=== PATIENT | female | born 1940 | race Caucasian/White ===

== ENCOUNTER → 2017-12-06 10:58 | Outpatient (CLI) | payer MEDICARE, OTHER, SELFPAY ==
[2017-12-06 12:20] LABS: Absolute Lymphocyte Count 2.23 X10^3/ul (0.83-4.51); Absolute Neutrophil Count 3.1 X10^3/uL (2.0-7.7); Basophil# 0.02 X10^3/uL; Basophil% 0.3 % (0-1); Eosinophil# 0.15 X10^3/uL; Eosinophils% 2.5 % (0-5); Hematocrit 42.5 % (37-47); Hemoglobin 13.8 g/dl (12.0-15.0); Lymphocyte # 2.23 X10^3/ul (4.0); Lymphocyte % 37.7 % (19-41); Mean Corp Hgb Conc 32.5 g/gl (32-36); Mean Corpuscular Hgb 30.9 pg (27.0-32.0); Mean Corpuscular Volume 95.3 fL (81-99); Mean Platelet Vol. 10.7 fl (6.2-12.0); Monocyte# 0.43 X10^3/uL; Monocyte% 7.3 % (0-10); Neutrophil # 3.07 X10^3/uL (2.7-7.7); Platelet Count 276 K/mm3 (150-450); RBC Distribution Width CV 13.7 % (11.6-14.6); RBC Distribution Width SD 46.1 fl (35.1-43.9); Red Blood Count 4.46 M/mm3 (4.2-5.4); White Blood Count 5.9 K/mm3 (4.4-11.0)
[2017-12-06 12:29] LABS: POSITIVE COUNT NO; POSITIVE DIFFERENTIAL NO; POSITIVE MORPHOLOGY NO
[2017-12-06 12:36] LABS: ALB/GLOB Ratio 0.9 RATIO (0.9-2.4); AST(SGOT) 20 U/L (15-37); Alanine Aminotransfer ALT/SGPT 25 U/L (13-56); Albumin, Serum 3.7 g/dL (3.2-5.0); Alkaline Phosphatase 54 U/L (45-117); Anion Gap 8 (5-15); BUN 16 mg/dL (7-18); BUN/Creat Ratio 19.4 RATIO (10-20); Calcium,Total 9.1 mg/dL (8.5-10.1); Chloride 106 mmol/L (98-107); Cholesterol 213 mg/dL (200); Creatinine, Serum 0.82 mg/dL (0.55-1.02); EST Glomerular Filtration Rate 71 mL/min (>60); Est Glom Filt Rate - Afr Amer 86 mL/min (>60); Globulin 4.1 g/dL (2.2-4.2); Glucose 98 mg/dL (74-106); High Density Lipoprotein 41 mg/dL; Magnesium 2.3 mg/dL (1.6-2.6); Potassium 4.4 mmol/L (3.5-5.1); Protein, Total 7.8 g/dL (6.4-8.2); Sodium Level 143 mmol/L (136-145); Thyroid Stim Hormone (TSH) 1.88 uIU/mL (0.358-3.74); Triglycerides 285 mg/dL; Very Low Density Lipoprotein 57 mg/dL (5-40)
[2017-12-07 10:12] LABS: PTHIN 37.3 pg/mL (18.4-80.1)
[2017-12-07 10:21] LABS: Vitamin D,25 Hydroxy 33.1 ng/mL (29.95-100.01)
== END ==
PROVIDERS: Family Provider Family Medicine; PCP Family Medicine; Visit Provider Family Medicine
DX: K21.0 Gastro-esophageal reflux disease with esophagitis (principal); E55.9 Vitamin D deficiency, unspecified; Z13.220 Encounter for screening for lipoid disorders
CPT/HCPCS: 36415; 80053; 80061; 82306; 83735; 83970; 84443; 85025

== ENCOUNTER → 2018-07-02 11:23 | Outpatient (CLI) | payer MEDICARE, OTHER, SELFPAY ==
[2018-07-02 13:51] LABS: Absolute Lymphocyte Count 2.41 X10^3/ul (0.83-4.51); Absolute Neutrophil Count 2.7 X10^3/uL (2.0-7.7); Basophil# 0.03 X10^3/uL; Basophil% 0.5 % (0-1); Eosinophils% 1.8 % (0-5); Hematocrit 42.7 % (37-47); Hemoglobin 14.3 g/dl (12.0-15.0); Lymphocyte # 2.41 X10^3/ul (4.0); Lymphocyte % 42.8 % (19-41); Mean Corp Hgb Conc 33.5 g/gl (32-36); Mean Corpuscular Volume 95.5 fL (81-99); Monocyte% 7.1 % (0-10); Neutrophil # 2.69 X10^3/uL (2.7-7.7); Neutrophil % 47.8 % (47-70); Platelet Count 228 K/mm3 (150-450); RBC Distribution Width CV 13.8 % (11.6-14.6); RBC Distribution Width SD 46.7 fl (35.1-43.9); Red Blood Count 4.47 M/mm3 (4.2-5.4); White Blood Count 5.6 K/mm3 (4.4-11.0)
[2018-07-02 13:58] LABS: POSITIVE COUNT NO; POSITIVE DIFFERENTIAL NO; POSITIVE MORPHOLOGY NO
[2018-07-02 14:08] LABS: ALB/GLOB Ratio 1.1 RATIO (0.9-2.4); AST(SGOT) 24 U/L (15-37); Alanine Aminotransfer ALT/SGPT 32 U/L (13-56); Albumin, Serum 3.9 g/dL (3.2-5.0); Alkaline Phosphatase 51 U/L (45-117); Anion Gap 10 (5-15); BUN 23 mg/dL (7-18); BUN/Creat Ratio 28.8 RATIO (10-20); Calcium,Total 9.2 mg/dL (8.5-10.1); Chloride 106 mmol/L (98-107); Cholesterol 197 mg/dL (200); EST Glomerular Filtration Rate 74 mL/min (>60); Est Glom Filt Rate - Afr Amer 89 mL/min (>60); Globulin 3.7 g/dL (2.2-4.2); Glucose 91 mg/dL (74-106); High Density Lipoprotein 43 mg/dL; Magnesium 2.3 mg/dL (1.6-2.6); Potassium 4.2 mmol/L (3.5-5.1); Protein, Total 7.6 g/dL (6.4-8.2); Sodium Level 144 mmol/L (136-145); Thyroid Stim Hormone (TSH) 1.31 uIU/mL (0.358-3.74); Triglycerides 150 mg/dL; Very Low Density Lipoprotein 30 mg/dL (5-40)
== END ==
PROVIDERS: Family Provider Family Medicine; PCP Family Medicine; Referring Provider Family Medicine; Visit Provider Family Medicine
DX: R00.2 Palpitations (principal); R06.09 Other forms of dyspnea
CPT/HCPCS: 36415; 80053; 80061; 83735; 84443; 85025

== ENCOUNTER 2018-07-15 10:00 | Outpatient (RCR) | payer MEDICARE, OTHER, SELFPAY ==
--- NOTE | 2018-07-17 08:42 | HP.OTEVAL ---
Patient's Visit Information OMAR HILL is a 77 year old F, referred to Occupational Therapy by Cresencio Mckeon MD, with a diagnosis of OA bilateral hands with deformities. Date of Evaluation: 07/15/18 Occupational Therapist: Komal Rosen, MICHAEL/Vinay, CHT - Subjective Subjective: pt working 20 hrs every other week- pt states her hands are painful and digits are ulnar dev. pt states she has no strength for opening containers or use of her hands for long periods of time. pt would like to know what brace she can wear at night as she does not want to wear braces during the day. 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 Pt will demo understanding of adaptive Equipment use to decrease stress on joints to allow pt to perform BADSL and IADLS at TROY level. Goal:: pt will demo understanding of orthosis use at night - wear/care and precautions. pt to return with orthosis if she needs any adj. made to increase comfort. - Rehabilitation General Assessment: pt demo with OA changes at all joints of bilateral hands. pt demo a redunction in functional use of her hands for adls and IADLS. Pt would benefit from skilled OT services 1x week for 3 weeks to ed. pt on ad. eq and joint protection hudson. to increase pts ind with ADLs . Rehabilitation Potential: Good - Anticipated Interventions Anticipated Interventions: A/AAROM/PROM, Strengthening, Triggerpoint Release, Modalities, Orthoses, Joint Protection/Energy Conservation, Ergonomic Education, Fine Motor Coord/Pj - Visit Plan Frequency: 1x/Week Duration: 3 Weeks TEXT: Thank you for the opportunity to evaluate your patient. For Medicare and Medicare HMO plans, please review the plan of care and approve it. It will need to be FAXED BACK to us at [phone] for Medicare purposes. Please let me know if there are questions or concerns regarding this plan of care. Physician Signature: Date:
--- NOTE | 2018-08-28 14:44 | HP.OT.NRP ---
HP - Discharge Summary - Patient Information OMAR HILL was seen in my office for initial evaluation on 07/15/18. The following Plan of Care was established for this patient: Initial Frequency: 1x/Week Initial Duration: 3 Weeks - Anticipated Interventions Anticipated Interventions: A/AAROM/PROM, Strengthening, Triggerpoint Release, Modalities, Orthoses, Joint Protection/Energy Conservation, Ergonomic Education, Fine Motor Coord/Pj This patient was last seen in our office 07/15/18. Pertinent comments regarding their Occupational therapy will appear below: pt seen for OT eval only no further apts have been scheduled. pt D/C at this time due to time-lapse in services. At this point I will be discontinuing this patient from occupational therapy. I would be happy to see this patient again in the future if found appropriate by the physician. Thank you! Komal Rosen, OTR/L, CHT
== END 2018-07-15 19:00 | disposition home or self-care (01) ==
LOC: OT 10:00
PROVIDERS: Family Provider Family Medicine; PCP Family Medicine; Referring Provider Family Medicine; Visit Provider Family Medicine
DX: M19.049 Primary osteoarthritis, unspecified hand (principal)
CPT/HCPCS: 97166; 97760

== ENCOUNTER → 2018-07-16 08:53 | Outpatient (CLI) | payer MEDICARE, OTHER, SELFPAY ==
[2015-01-17 02:04] VITALS: BMI 68.8
--- NOTE | 2018-07-16 08:56 | ECHOD_ITS ---
Reason For Study: KINNEY Procedure This was a 2D Doppler, Color Flow transthoracic echocardiogram. Exam performed in department. Left Ventricle Normal LV size. Left ventricular systolic function is normal. The estimated ejection fraction is 60 %. Stage 1 diastolic dysfunction. No regional wall motion abnormalities noted. Right Ventricle Normal RV size. Normal systolic function. Atria Normal left atrium. Normal right atrium. Mitral Valve Normal mitral valve. Mild (1+) eccentric mitral valve insufficiency. Tricuspid Valve Normal tricuspid valve. Mild (1+) tricuspid valve insufficiency. Pulmonary artery systolic pressure is 28 mmHg. Aortic Valve Normal aortic valve. Pulmonic Valve Normal pulmonic valve. Great Vessels Normal aortic root. The pulmonary artery is normal size. Normal inferior vena cava. Pericardium/Pleural No pericardial effusion. MMode/2D Measurements & Calculations LVIDd: 3.7 cm IVSd: 1.0 cm Ao root diam: 3.1 cm LVIDs: 2.2 cm LVPWd: 0.97 cm LA dimension: 3.5 cm RVDd: 3.8 cm FS: 40.6 % LAV(MOD-bp): 44.7 ml LA A4 area: 15.4 cm2 RA A4 area: 13.7 cm2 LAV(MOD-bp) Indexed: 26.7 ml/m2 LAV(MOD-sp2): 43.0 ml LAV(MOD-sp4): 41.2 ml Time Measurements MV dec time: 0.18 sec Doppler Measurements & Calculations MV E max rashaun: 83.0 cm/sec Lat Peak E' Rashaun: 8.5 cm/sec Med Peak E' Rashaun: 6.5 cm/sec MV A max rashaun: 98.1 cm/sec E/E' lat: 9.7 E/E' med: 12.7 MV E/A: 0.85 MV V2 max: 102.6 cm/sec MV P1/2t max rashaun: 101.9 cm/sec Ao V2 max: 120.0 cm/sec MV max P.2 mmHg MV P1/2t: 68.1 msec Ao max P.8 mmHg MV V2 mean: 50.5 cm/sec MV dec slope: 437.9 cm/sec2 Ao V2 mean: 79.7 cm/sec MV mean P.2 mmHg MVA(P1/2t): 3.2 cm2 Ao mean P.9 mmHg MV V2 VTI: 31.9 cm Ao V2 VTI: 29.4 cm LV V1 max: 87.9 cm/sec MR max rashaun: 545.7 cm/sec PA V2 max: 71.0 cm/sec LV V1 max P.1 mmHg MR max P.1 mmHg LV V1 mean P.4 mmHg MR mean rashaun: 437.3 cm/sec LV V1 mean: 55.1 cm/sec MR mean P.6 mmHg LV V1 VTI: 20.7 cm MR VTI: 221.7 cm TR max rashaun: 247.9 cm/sec TR max P.6 mmHg Interpretation Summary Normal LV size. Left ventricular systolic function is normal. The estimated ejection fraction is 60 %. Stage 1 diastolic dysfunction. Mild (1+) tricuspid valve insufficiency. Ordering Physician: Cresencio Mckeon Referring Physician: Cresencio Mckeon Performed By: Angel Luis Murphy RCS
== END ==
PROVIDERS: Family Provider Family Medicine; PCP Family Medicine; Referring Provider Family Medicine; Visit Provider Family Medicine
DX: R06.09 Other forms of dyspnea (principal)
CPT/HCPCS: 93306

== ENCOUNTER → 2018-11-08 11:25 | Outpatient (CLI) | payer MEDICARE, OTHER, SELFPAY ==
--- NOTE | 2018-11-08 11:32 | VDLE_ITS ---
Reason For Study: Rt calf pain RIGHT GSV is normal. CFV is compressible, spontaneous, phasic, competent and demonstrates normal augmentation. FV is compressible, spontaneous, phasic, competent and demonstrates normal augmentation. POP V is compressible, spontaneous, phasic, competent and demonstrates normal augmentation. T/P Trunk is compressible. PTV is compressible. RT PerV is compressible. Procedure Exam performed in department. A preliminary report was called and/or faxed to Edwin. Interpretation Summary Deep veins of the right lower extremity are patent and compressible segmentally. There is no evidence of right lower extremity deep vein thrombosis. Valvular competence appears intact within the proximal deep venous system on the right . The right greater saphenous vein appears patent and compressible segmentally. Ordering Physician: Alex Pineda Referring Physician: Cresencio Mckeon MD Performed By: Katlyn Duarte RVT
== END ==
PROVIDERS: Family Provider Family Medicine; PCP Family Medicine; Referring Provider Family Medicine; Visit Provider Family Medicine
DX: M79.661 Pain in right lower leg (principal)
CPT/HCPCS: 93971

== ENCOUNTER 2019-08-09 17:26 | Inpatient (IN) | payer MEDICARE, OTHER, SELFPAY ==
[2019-08-09] VITALS (10 sets, daily range): BP systolic 110–133; BP diastolic 59–72; PULSE 73–80; RESP 16–20; TEMP 36.6–37.3; O2SAT 95–100; BMI 29.4; BMI 29.1
[2019-08-09 17:47] LABS: Absolute Lymphocyte Count 1.96 X10^3/uL (0.83-4.51); Absolute Neutrophil Count 3.1 X10^3/uL (2.0-7.7); Hematocrit 41.4 % (37-47); Hemoglobin 13.8 g/dL (12.0-15.0); Lymphocyte # 1.96 X10^3/ul (4.0); Lymphocyte % 35.9 % (19-41); Mean Corp Hgb Conc 33.3 g/dL (32-36); Mean Corpuscular Hgb 30.1 pg (27.0-32.0); Mean Corpuscular Volume 90.2 fL (81-99); Mean Platelet Vol. 9.3 fl (6.2-12.0); Monocyte# 0.41 X10^3/uL; Monocyte% 7.5 % (0-10); NRBC Flagged by Analyzer 0 % (0-5); Neutrophil # 3.06 X10^3/uL (2.7-7.7); Neutrophil % 56.1 % (47-70); Platelet Count 254 K/mm3 (150-450); RBC Distribution Width CV 14.2 % (11.6-14.6); RBC Distribution Width SD 46.5 fl (35.1-43.9); Red Blood Count 4.59 M/mm3 (4.2-5.4); White Blood Count 5.5 K/mm3 (4.4-11.0)
--- NOTE | 2019-08-09 17:54 | RAD_ITS ---
STUDY: X-RAY CHEST REASON FOR EXAM: Female, 78 years old. Shortness of breath. TECHNIQUE: Frontal view of the chest COMPARISON: 08/14/2013 FINDINGS: There are patchy airspace opacities noted in the midlung fuentes bilaterally. There are no pleural effusions. There is no pneumothorax. The heart is normal in size. The visualized osseous structures are within normal limits. RAD/Chest 1 View (Portable) IMPRESSION: Patchy airspace opacities in the midlung fuentes bilaterally. This is likely infectious in etiology. Electronically Signed: Robi Sam, at 18:12 EDT Tel , Service support ,
[2019-08-09 17:58] LABS: International Normalized Ratio 1.1; Partial Thromboplast Time 29.2 Seconds (24.1-36.2); Prothrombin Time (Protime)PT. 13.5 SECONDS (11.7-14.9)
[2019-08-09 18:04] LABS: ALB/GLOB Ratio 0.7 RATIO (0.9-2.4); AST(SGOT) 97 U/L (15-37); Alanine Aminotransfer ALT/SGPT 77 U/L (13-56); Albumin, Serum 3.1 g/dL (3.2-5.0); Alkaline Phosphatase 56 U/L (45-117); Anion Gap 8 (5-15); BUN 15 mg/dL (7-18); BUN/Creat Ratio 18.8 RATIO (10-20); Calcium,Total 8.4 mg/dL (8.5-10.1); Chloride 100 mmol/L (98-107); EST Glomerular Filtration Rate 74 mL/min (>60); Est Glom Filt Rate - Afr Amer 89 mL/min (>60); Estimated Creatinine Clearance 41.63 ml/min; Globulin 4.6 g/dL (2.2-4.2); Glucose 106 mg/dL (74-106); Potassium 3.6 mmol/L (3.5-5.1); Protein, Total 7.7 g/dL (6.4-8.2); Sodium Level 135 mmol/L (136-145)
[2019-08-09 18:07] LABS: Lactic Acid 1.5 mmol/L (0.4-1.9)
--- NOTE | 2019-08-09 19:50 | ED.DCSUM_ITS ---
- ER Visit Summary Date of Service: 08/09/19 Chief Complaint: Cough, SOB History of Present Illness: The patient is a [address] Cresencio Mckeon. She is a nurse at [employer]. She is confused and a poor informant. She tells me that she has been quarantined for 7 to 8 weeks. She checked her pulse ox at home today and it was 85% on room air. Patient was discussed with Dr. Alpesh Perdue. He reports that she was diagnosed in the office 1 week ago with COVID-19 and has been quarantined. He suspects th is is actually day 10 of her illness. He reports that her daughter called today and stated that she is very weak and her pulse ox is low on room air. Physical Examination: Vitals: 98.0, 121/68, 78, 16, 96% on 3 there is nasal cannula. She was 85% on room air which is hypoxic. General: Well-nourished and well-developed. Head: Normocephalic atraumatic. Neck: Supple, no lymphadenopathy. No JVD. Nontender. Cardiovascular: Regular rate and rhythm. No murmurs. Respiratory: Mild respiratory distress with rhonchi bilaterally. Abdominal: Soft, nontender, nondistended, normal bowel sounds. No guarding, rebound, or peritoneal signs. Back: Nontender. Extremities: Nontender, no edema. Skin: Normal color, no rash. Neurologic: Alert and oriented ?3. Cranial nerves II through XII are intact. Normal strength and sensation. Psych: Normal affect. Test Results: CBC is normal. Chem-7 shows a sodium 135 and calcium of 8.4. LFTs show an ALT of 77 and AST of 97. Albumin is 3.1 globulin is 4.6. Coags are normal. Troponin is negative. Clinical Impression(s) from Imaging Studies Chest X-Ray 08/09/19 17:54 IMPRESSION: Patchy airspace opacities in the midlung fuentes bilaterally. This is likely infectious in etiology. Electronically Signed: Robi Sam, at 18:12 EDT Tel , Service support , Emergency Department Course and Treatment: Patient is resting comfortably. Her pulse ox is 95% on 3 is nasal cannula. Treatment Plan: Patient was discussed with Dr. Eisenberg. She has the patient given a dose of Zosyn. She will be admitted to the hospital for further evaluat ion and treatment. Disposition: Admitted in improved, but serious condition. Impression: 1. COVID-19 infection. 2. Confusion. 3. Hypoxia. This note was generated with [employer] dictation software. It may contain incorrect words, spelling, and punctuation that were not noted in review of the chart prior to signing ED Disposition - Plan for ED Patient: Disposition: Acute Care Hospital [facility]
--- NOTE | 2019-08-09 19:56 | EKG12_ITS ---
Test Reason : DYSRHYTHMIA Blood Pressure : / mmHG Vent. Rate : 079 BPM Atrial Rate : 079 BPM P-R Int : 148 ms QRS Dur : 086 ms QT Int : 376 ms P-R-T Axes : 027 -14 013 degrees QTc Int : 431 ms Normal sinus rhythm Normal ECG Confirmed by FRANCO HDEZ, TRISH ([id number]), editor & co founder BONIFACIO PATTERSON ([id number]) on 08/12/2019 1:55:29 PM Referred By: SHANA Confirmed By:TRISH GAMEZ MD
--- NOTE | 2019-08-09 20:23 | ED.RN ---
called Adi to update on patient's admission.
--- NOTE | 2019-08-09 20:55 | PCM.HP.STD ---
Problem List (1) SARS-associated coronavirus infection Status: Acute (2) Pneumonia Status: Acute Qualifiers: Pneumonia type: due to unspecified organism Lung location: unspecified part of lung (3) Hypoxia Status: Acute History of Present Illness Date of Admission: 08/09/19 Chief Complaint: Hypoxia, cough, shortness of breath - 2 weeks The patient is a 78 year old F with no significant past medical history who comes in with complaints of fever, cough, and shortness of breath ongoing for almost 2 weeks. Patient is a nurse at the [employer]. She was seen by her primary care doctor on 08/01/19 and got tested for COVID?19. Her results came back positive on 08/02/19. She has since been in self quarantine. She has been following up daily with her primary care doctor remotely. Today she has been progressively short of breath, her oxygen saturation drops to 85% with minimal exertion. Vitals in the ED showed temperature of 90 7.9F, heart rate 80, blood pressure 122/72, respiratory rate 19, SPO2 was 97% on 6 L of oxygen.improve gradually to 3 L of oxygen. Her admitting blood work showed WBC 5.5, Hb 13.8, Plt 254. INR 1.1, CMP is unremarkable except for Na 135, AST 95, ALT 77. Admitting CXR showed patchy airspace opacities in the midlung fuentes bilaterally. 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 Denies: Fever, Night Sweats, Weight Change Eyes: Denies: Blurred vision, Cataracts, Conjunctivae Inflammation, Pain, Redness HEENT: Denies: Difficulty Hearing, Difficulty Swallowing, Head Aches, Hearing Changes, Sinus Congestion, Sinus Drainage Cardiovascular: Denies: Chest Pain, Claudication, Orthopnea, Palpitations Respiratory: Reports: Cough, Shortness of Breath, Shortness of breath at rest, Shortness of breath upon exertion. Denies: Sputum production Gastrointestinal: Reports: Diarrhea. Denies: Abdominal Pain, Constipation, Hematemesis, Hematochezia, Nausea, Vomiting Genitourinary: Denies: Dysuria Musculoskeletal: Denies: Joint Pain, Joint stiffness, Joint swelling, Joint Tenderness Skin: Denies: Rash, Wounds Neurological: Denies: Numbness, Tingling, Focal weakness Psychiatric: Denies: Anxiety, Depression, Homicidal Ideations, Suicidal Ideations Hematologic/ Lymphatic: Denies: Easy Bruising, Easy Bleeding VTE Information - Inpt Only VTE Present on Admission: No VTE Pharm Prophylaxis ordered?: Yes Patient Problems: Active and Suspected Problems SARS-associated coronavirus infection (Acute) Pneumonia (Acute) Hypoxia (Acute) - Physical Exam Vitals/I&O's: Vital Signs Temp Pulse Resp BP Pulse Ox 98 F 80 18 129/71 H 95 08/09/19 20:22 08/09/19 20:22 08/09/19 20:22 08/09/19 20:22 08/09/19 20:22 Oxygen Flow Rate (L/min) 3 Oxygen Delivery Method Nasal Cannula Weight: 68.3 kg Body Mass Index (BMI) 29.4 General: Alert, Oriented x3, Cooperative, No apparent distress HEENT: Atraumatic, PERRLA, EOMI, Normocephalic Oral: Moist Mucosa Neck: Supple Lungs: Clear to auscultation, Normal air movement Cardiovascular: Regular rate, Regular Rhythm, Normal S1, Normal S2, No murmurs Abdomen: Bowel Sounds Present, Soft, Non Tender, Non-Distended, No Hepato-splenomegaly Extremities: No edema Skin: No rashes, No breakdown Musculoskeletal: No Tenderness to Palpation of Joints or Extremities Lymphatic: No Cervical, Supraclavicular, or Inguinal Adenopathy Neurological: Cranial nerves II-XII grossly intact, Neuro grossly intact Psych/Mental Status: Normal Affect, Appropriate Laboratory Results 08/09/19 17:30: WBC 5.5, RBC 4.59, Hgb 13.8, Hct 41.4, MCV 90.2, MCH 30.1, MCHC 33.3, RDW Std Deviation 46.5 H, RDW Coeff of Masha 14.2, Plt Count 254, MPV 9.3, Immature Gran % (Auto) 0.500, Neut % (Auto) 56.1, Lymph % (Auto) 35.9, Stephens % (Auto) 7.5, Eos % (Auto) 0.0, Baso % (Auto) 0.0, Absolute Neuts (auto) 3.1, Absolute Lymphs (auto) 1.96, Nucleated RBC % 0 08/09/19 17:30: PT 13.5, INR 1.1, APTT 29.2 08/09/19 17:30: Sodium 135 L, Potassium 3.6, Chloride 100, Carbon Dioxide 27.0, Anion Gap 8, BUN 15, Creatinine 0.80, Estim Creat Clear Calc 41.63, Est GFR (MDRD) Af Amer 89, Est GFR (MDRD) Non-Af 74, BUN/Creatinine Ratio 18.8, Glucose 106, Calcium 8.4 L, Total Bilirubin 0.60, AST 97 H, ALT 77 H, Alkaline Phosphatase 56, Troponin I < 0.015, Total Protein 7.7, Albumin 3.1 L, Globulin 4.6 H, Albumin/Globulin Ratio 0.7 L 08/09/19 17:30: Lactic Acid 1.5 Assessment/Plan All Active Problems SARS-associated coronavirus infection (Acute) Pneumonia (Acute) Hypoxia (Acute) 78 year old F with no significant past medical history who comes in with complaints of fever, cough, and shortness of breath ongoing for almost 2 weeks. 1. Hypoxia secondary to active COVID?19 infection, currently on 3 L of oxygen We will continue same 2. Pneumonia/Active COVID-19 infection, completed 5 days of Azithromycin We will continue with IV Zosyn ID and critical care consulted 3. Acute diarrhea, will rule infectious etiology with enteric panel, Continue on contact precautions 4. Debility secondary to #1 and #2, will hold off on ordering PT and OT for now Would encourage nursing to assist from bed to chair to prevent progressive debility 5. DVT PPx- Lovenox SC 6. Code status - Full code Discussed in detail with the patient the plan of care and management. I clarified what code status she wants, should she decompensate; Patient stated that her family will want her to be full code and for that reason she wants to be full code. Time spent discussing CODE STATUS was 16 minutes Inpatient E&M: 27388 Init Hosp L3 Procedures: 72251 Advncd Care Plan 30 Min
[2019-08-09 21:37] LABS: Magnesium 2.3 mg/dL (1.6-2.6)
[2019-08-09] MEDS: 0.9% Normal Saline 1,000 ML 75 ML IV (22:16)
[2019-08-09] MEDS: Hydroxychloroquine 200 MG Tablet 400 MG PO (22:17)
[2019-08-10 02:55] VITALS: BP 119/65; PULSE 74; RESP 20; TEMP 37.1; O2SAT 93
[2019-08-10 03:03] VITALS: RESP 20; O2SAT 93
[2019-08-10 07:15] LABS: Mucous, Urine 0 SEEN /hpf (<or=2+)
[2019-08-10 07:19] LABS: Absolute Lymphocyte Count 2.09 X10^3/uL (0.83-4.51); Absolute Neutrophil Count 3.2 X10^3/uL (2.0-7.7); Basophil# 0.01 X10^3/uL; Basophil% 0.2 % (0-1); Eosinophil# 0.12 X10^3/uL; Hemoglobin 12.8 g/dL (12.0-15.0); Lymphocyte # 2.09 X10^3/ul (4.0); Lymphocyte % 35.7 % (19-41); Mean Corp Hgb Conc 32.8 g/dL (32-36); Mean Corpuscular Hgb 30.1 pg (27.0-32.0); Mean Corpuscular Volume 91.8 fL (81-99); Mean Platelet Vol. 9.6 fl (6.2-12.0); Monocyte% 6.8 % (0-10); NRBC Flagged by Analyzer 0 % (0-5); Neutrophil # 3.21 X10^3/uL (2.7-7.7); Neutrophil % 54.8 % (47-70); Platelet Count 256 K/mm3 (150-450); RBC Distribution Width CV 14.4 % (11.6-14.6); RBC Distribution Width SD 47.8 fl (35.1-43.9); Red Blood Count 4.25 M/mm3 (4.2-5.4); White Blood Count 5.9 K/mm3 (4.4-11.0)
[2019-08-10 07:22] LABS: Color, Urine Yellow (Yellow); Glucose, Dipstick Normal (Normal); Ketone-Dipstick 5 mg/dl (Negative); Leukocyte Esterase-Dipstick 500 /ul (Negative); Nitrite-Dipstick Negative (Negative); Occult Blood-Urine 10 /ul (Negative); Protein-Dipstick 100 mg/dl (Negative); Urine Bilirubin Dipstick Negative (Negative); Urine Clarity Sl. Cloudy (Clear); Urine Urobilinogen 1 mg/dl (Normal)
[2019-08-10 07:35] LABS: ALB/GLOB Ratio 0.6 RATIO (0.9-2.4); AST(SGOT) 92 U/L (15-37); Alanine Aminotransfer ALT/SGPT 79 U/L (13-56); Albumin, Serum 2.6 g/dL (3.2-5.0); Alkaline Phosphatase 47 U/L (45-117); Anion Gap 7 (5-15); BUN 16 mg/dL (7-18); BUN/Creat Ratio 21.9 RATIO (10-20); Calcium,Total 8.2 mg/dL (8.5-10.1); Chloride 109 mmol/L (98-107); Creatinine, Serum 0.73 mg/dL (0.55-1.02); EST Glomerular Filtration Rate 82 mL/min (>60); Est Glom Filt Rate - Afr Amer 99 mL/min (>60); Globulin 4.1 g/dL (2.2-4.2); Glucose 102 mg/dL (74-106); Potassium 3.5 mmol/L (3.5-5.1); Protein, Total 6.7 g/dL (6.4-8.2); Sodium Level 139 mmol/L (136-145)
[2019-08-10 07:37] LABS: Bacteria 1+ /hpf (None Seen); Red Blood Cells-Urine 0-5 SEEN /hpf (0-5); Squamous Epithelial Cells - UA 0-5 SEEN /hpf (5-10); White Blood Cells 25-50 SEEN /hpf (0-5)
[2019-08-10 07:39] VITALS: BP 113/58; PULSE 73; RESP 20; TEMP 36.9; O2SAT 92
[2019-08-10] MEDS: Hydroxychloroquine 200 MG Tablet 400 MG PO (07:44)
[2019-08-10] MEDS: Ascorbic Acid 500 MG Tablet 1000 MG PO ×2 (07:45→16:57)
--- NOTE | 2019-08-10 09:17 | PCM.PROGNOTE ---
Patient Problems: Active and Suspected Problems SARS-associated coronavirus infection (Acute) Pneumonia (Acute) Hypoxia (Acute) Subjective: Chief complaint: Follow-up after admission for acute bilateral viral pneumonia due to COVID-19 with hypoxia. Patient seen and examined. No acute events overnight. Today, she is feeling better, shortness of breath started to improve. She reported cough, minimal sputum. Denies fever chills. She has been afebrile, blood pressure and heart rate are stable, pulse ox is 93% on 3 L. - Physical Exam Vitals/I&O's: Vital Signs Temp Pulse Resp BP Pulse Ox 98.5 F 73 20 H 113/58 L 92 08/10/19 07:39 08/10/19 07:39 08/10/19 07:39 08/10/19 07:39 08/10/19 07:39 Oxygen Flow Rate (L/min) 3 Oxygen Delivery Method Nasal Cannula Weight: 147 lb 0.773 oz Body Mass Index (BMI) 29.1 Intake and Output for Last 24 Hours 08/08/19 08/09/19 08/10/19 23:59 23:59 23:59 Intake Total 100 / 100 0 / 0 Output Total 700 / 700 Balance 100 / -500 -700 / -700 General: Alert, Oriented x3, Cooperative, No apparent distress HEENT: Atraumatic, PERRLA, EOMI, Normocephalic Oral: Moist Mucosa, No Gingival or Mucosal Lesions/ Ulcerations Neck: Supple, No JVD, Negative Carotid Bruits, Trachea Midline, Thyroid Normal Size and Texture Lungs: Clear to auscultation, Normal air movement, No rhonchi, No wheeze, No rales, Diminished, - - Decreased breath sounds bilateral, otherwise clear. Cardiovascular: Regular rate, Regular Rhythm, Normal S1, Normal S2, PMI Normal Abdomen: Bowel Sounds Present, Soft, Non Tender, Non-Distended, No Hepato-splenomegaly Extremities: No clubbing, No cyanosis, No edema Skin: No rashes, No breakdown Lymphatic: No Cervical, Supraclavicular, or Inguinal Adenopathy Neurological: Cranial nerves II-XII grossly intact, Motor Exam 5/5 strength throughout Psych/Mental Status: Normal Affect, Appropriate, Alert and oriented to time, place, person, mood and affect Laboratory Results 08/10/19 07:00: WBC 5.9, RBC 4.25, Hgb 12.8, Hct 39.0, MCV 91.8, MCH 30.1, MCHC 32.8, RDW Std Deviation 47.8 H, RDW Coeff of Masha 14.4, Plt Count 256, MPV 9.6, Immature Gran % (Auto) 0.500, Neut % (Auto) 54.8, Lymph % (Auto) 35.7, Caldwell % (Auto) 6.8, Eos % (Auto) 2.0, Baso % (Auto) 0.2, Absolute Neuts (auto) 3.2, Absolute Lymphs (auto) 2.09, Nucleated RBC % 0 08/10/19 07:00: Sodium 139, Potassium 3.5, Chloride 109 H, Carbon Dioxide 23.0, Anion Gap 7, BUN 16, Creatinine 0.73, Estim Creat Clear Calc 33.30, Est GFR (MDRD) Af Amer 99, Est GFR (MDRD) Non-Af 82, BUN/Creatinine Ratio 21.9 H, Glucose 102, Calcium 8.2 L, Total Bilirubin 0.50, AST 92 H, ALT 79 H, Alkaline Phosphatase 47, Total Protein 6.7, Albumin 2.6 L, Globulin 4.1, Albumin/Globulin Ratio 0.6 L Clinical Impression(s) from Imaging Studies Chest X-Ray 08/09/19 17:54 IMPRESSION: Patchy airspace opacities in the midlung fuentes bilaterally. This is likely infectious in etiology. Electronically Signed: Robi Cecy, at 18:12 EDT Tel , Service support , Current Medications Acetaminophen (Tylenol) 650 mg PO Q6H PRN PRN PRN Reason: Pain Score 1-10/Temp > 100.7 F Ascorbic Acid (Vitamin C) 1,[facility] Last Admin: 08/10/19 07:45 Dose: 1,000 mg Documented by: Enoxaparin Sodium (Lovenox) 40 mg SC DAILY [facility] Guaifenesin (Robitussin) 20 ml PO Q4H PRN PRN PRN Reason: COUGH Hydroxychloroquine Sulfate (Plaquenil) 200 mg [facility] Stop: 08/14/19 08:01 Sodium Chloride () 1,000 mls @ 75 mls/hr IV .[id number] [facility] Stop: 08/10/19 17:18 Last Admin: 08/09/19 22:16 Dose: 75 mls/hr Documented by: Piperacillin Sod/Tazobactam (Sod 3.375 gm/ Sodium Chloride) 50 mls @ 12.5 mls/hr IV Q8 KRISTIAN Last Admin: 08/10/19 06:51 Dose: 12.5 mls/hr Documented by: Sodium Chloride () 250 mls @ 15 mls/hr IV .[id number] PRN PRN Reason: Saline Flush Last Infusion: 08/10/19 06:51 Dose: 0 mls/hr Documented by: Sodium Chloride () 250 mls @ 15 mls/hr IV .[id number] PRN PRN Reason: Additional IVPB Infusion Nutritional Formula (Lactose Free) (Ensure Enlive) 120 ml PO 4X/DAY [facility] Sodium Chloride () 10 - 40 ml IV UD PRN PRN Reason: SALINE FLUSH Throat Lozenges (Cepacol Sore Throat Lozenge) 1 lozenge MUCOUS MEM Q2H PRN PRN PRN Reason: SORE THROAT Zinc Sulfate (Zinc Sulfate) 220 mg PO TID [facility] Stop: 08/14/19 22:01 Last Admin: 08/10/19 06:52 Dose: 220 mg Documented by: Medical Necessity - Tobacco Use Smoking Status: Former smoker Tobacco Use: Non-smoker Assessment/Plan All Active Problems SARS-associated coronavirus infection (Acute) Pneumonia (Acute) Hypoxia (Acute) This is a 78 years old female patient presented to the emergency room because of shortness of breath and cough as well as low pulse oximeter in context of recent diagnosis of COVID-19 infection and she was found to have patchy infiltrate on the both mid lungs consistent with viral pneumonia and also she was found to be hypoxic. #1 acute viral pneumonia due to COVID-19: Patient tested positive for COVID-19 several days ago and she has been quarantined at home. In the emergency department, her pulse ox was 85% on room air. Chest x-ray reviewed. Routine blood work was unremarkable. She is on IV Zosyn as well as hydroxychloroquine. Blood and urine cultures are pending. Today, she is feeling better but remains on oxygen at 3 L. She has been afebrile. Plan to continue same treatment. #2 hypoxia: Secondary to #1. Patient does not have history of lung disease, COPD or asthma. Never been oxygen at home before. At this time, she is on 3 L. She is comfortable, not dyspneic or tachypneic. Plan as above. #3 elevated LFT: Mainly liver transaminases, slight elevated. Bilirubin and alkaline phosphatase are normal. This likely due to the viral illness. Patient denied any right upper quad abdominal pain. Plan to monitor. #4 DVT prophylaxis: Subcu Lovenox. This note was generated with [employer] dictation software. It may contain incorrect words, spelling, and punctuation that were not noted in checking the note before signing. Inpatient E&M: 67987 Subs Hosp L2
--- NOTE | 2019-08-10 09:34 | CON.PCM_ITS ---
Problem List (1) SARS-associated coronavirus infection Status: Acute (2) Pneumonia Status: Acute Qualifiers: Pneumonia type: due to unspecified organism Laterality: bilateral Lung location: unspecified part of lung Qualified Code(s): J18.9 - Pneumonia, unspecified organism (3) Hypoxia Status: Acute Reason for Consult Date of Consultation: 08/10/19 Reason for Consultation: Hypoxia, COVID History of Present Illness: The patient is a 78 year old F, with past medical history listed below, who presented to [facility] on 08/09/2019 secondary to shortness of breath. Patient reportedly sees Dr. 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 Patient reports that she has been quarantined for 2 weeks, but states that she has not felt right since the end of June. Patient is somewhat of a poor historian, but states that her biggest complaint is dyspnea on exertion. Patient denies any current chest pain, abdominal pain, nausea or vomiting. Patient did have persistent nausea previously, but denied any vomiting. No aspiration has been reported. In the ER, patient was noted to be hypoxic at 85% on room air. Patient was placed on 3 L nasal cannula with improvement. Laboratory work-up was unremarkable. Chest x-ray showed patchy airspace opacities bilaterally. Pancultures were initiated, along with empiric Zosyn and patient was admitted to the cohort floor for further evaluation. Since admission to the hospital, patient has remained stable on 3 L nasal cannula. Patient did not have any fevers noted overnight. Patient's remained hemodynamically stable without significant tachycardia. Patient is not reporting any production with her cough at this time. Patient is not reporting any chest pain this morning. Patient reports a brief smoking history, but is never been diagnosed with asthma, COPD or other lung pathology. Patient denies any history of positive PPD. Patient is a relatively poor historian, but is much as I can attest, review of systems otherwise negative from a constitutional, HEENT, respiratory, cardiovascular, GI, genitourinary, musculoskeletal, skin, neurologic, psychiatric and hematologic system unless stated above. Past Medical History Allergies codeine Adverse Reaction (Verified 08/09/19 17:34) Other Home Medications: Ambulatory Orders Medication Instructions Recorded NK 08/09/19 Surgical History: appendectomy Psychiatric History: No pertinent psych hx MANAGER AIR History: No pertinent MANAGER AIR history Lives: Spouse/ Significant Other, With Family Smoking Status: Former smoker Tobacco Use: Non-smoker Alcohol: None Drugs: None - *Family History Maternal History Items: Cancer - pancreatic Paternal History Items: Heart Disease Review of Systems Unable to obtain accurate/complete ROS d/t: Confusion Patient Problems: Active and Suspected Problems SARS-associated coronavirus infection (Acute) Pneumonia (Acute) Hypoxia (Acute) Objective: Chest x-ray was personally reviewed. Agree with formal interpretation. Patient did have an echocardiogram in July 2018 showing an EF of 60% with stage I diastolic dysfunction, mild valvular insufficiency with a pulmonary artery pressure of 28 mmHg. Pulmonary function tests have been obtained. - Physical Exam Vitals/I&O's: Vital Signs Temp Pulse Resp BP Pulse Ox 36.9 C 73 20 H 113/58 L 92 08/10/19 07:39 08/10/19 07:39 08/10/19 07:39 08/10/19 07:39 08/10/19 07:39 Oxygen Flow Rate (L/min) 3 Oxygen Delivery Method Nasal Cannula Weight: 66.7 kg Body Mass Index (BMI) 29.1 Intake and Output for Last 24 Hours 08/08/19 08/09/19 08/10/19 23:59 23:59 23:59 Intake Total 100 / 100 0 / 0 Output Total 700 / 700 Balance 100 / -500 -700 / -700 General: Alert, Cooperative, No apparent distress, - - No conversational dyspnea. HEENT: Atraumatic, PERRLA, EOMI, Normocephalic, - - No scleral icterus or injection noted Oral: Moist Mucosa, No Gingival or Mucosal Lesions/ Ulcerations Neck: Supple, No JVD, No Nodes, Trachea Midline Lungs: No rhonchi, No wheeze, No rales, Diminished Cardiovascular: Regular rate, Regular Rhythm, Normal S1, Normal S2, No murmurs, No rub noted, No Gallop Abdomen: Bowel Sounds Present, Soft, Non Tender, Non-Distended Extremities: No clubbing, No cyanosis, No edema, Capillary Refill Less than 3 Seconds Skin: No rashes, No breakdown Musculoskeletal: No Tenderness to Palpation of Joints or Extremities Lymphatic: No Cervical, Supraclavicular, or Inguinal Adenopathy Neurological: Cranial nerves II-XII grossly intact, Neuro grossly intact, Motor Exam 5/5 strength throughout Psych/Mental Status: Appropriate, Anxious Laboratory Results 08/09/19 06:47: Urine Color Yellow, Urine Clarity Sl. Cloudy, Urine pH 6.0, Ur Specific [place] 1.020, Urine Protein 100 H, Urine Glucose (UA) Normal, Urine Ketones 5 H, Urine Occult Blood 10 H, Urine Nitrite Negative, Urine Bilirubin Negative, Urine Urobilinogen 1 H, Ur Leukocyte Esterase 500 H, Urine RBC 0-5 SEEN, Urine WBC 25-50 SEEN, Ur Squamous Epith Cells 0-5 SEEN, Urine Bacteria 1+, Urine Mucus 0 SEEN 08/09/19 17:30: WBC 5.5, RBC 4.59, Hgb 13.8, Hct 41.4, MCV 90.2, MCH 30.1, MCHC 33.3, RDW Std Deviation 46.5 H, RDW Coeff of Masha 14.2, Plt Count 254, MPV 9.3, Immature Gran % (Auto) 0.500, Neut % (Auto) 56.1, Lymph % (Auto) 35.9, [place] % (Auto) 7.5, Eos % (Auto) 0.0, Baso % (Auto) 0.0, Absolute Neuts (auto) 3.1, Absolute Lymphs (auto) 1.96, Nucleated RBC % 0 08/09/19 17:30: PT 13.5, INR 1.1, APTT 29.2 08/09/19 17:30: Sodium 135 L, Potassium 3.6, Chloride 100, Carbon Dioxide 27.0, Anion Gap 8, BUN 15, Creatinine 0.80, Estim Creat Clear Calc 41.63, Est GFR (MDRD) Af Amer 89, Est GFR (MDRD) Non-Af 74, BUN/Creatinine Ratio 18.8, Glucose 106, Calcium 8.4 L, Total Bilirubin 0.60, AST 97 H, ALT 77 H, Alkaline Phosphatase 56, Troponin I < 0.015, Total Protein 7.7, Albumin 3.1 L, Globulin 4.6 H, Albumin/Globulin Ratio 0.7 L 08/09/19 17:30: Lactic Acid 1.5 08/09/19 17:30: Magnesium 2.3 08/10/19 07:00: WBC 5.9, RBC 4.25, Hgb 12.8, Hct 39.0, MCV 91.8, MCH 30.1, MCHC 32.8, RDW Std Deviation 47.8 H, RDW Coeff of Masha 14.4, Plt Count 256, MPV 9.6, Immature Gran % (Auto) 0.500, Neut % (Auto) 54.8, Lymph % (Auto) 35.7, [place] % (Auto) 6.8, Eos % (Auto) 2.0, Baso % (Auto) 0.2, Absolute Neuts (auto) 3.2, Absolute Lymphs (auto) 2.09, Nucleated RBC % 0 08/10/19 07:00: Sodium 139, Potassium 3.5, Chloride 109 H, Carbon Dioxide 23.0, Anion Gap 7, BUN 16, Creatinine 0.73, Estim Creat Clear Calc 33.30, Est GFR (MDRD) Af Amer 99, Est GFR (MDRD) Non-Af 82, BUN/Creatinine Ratio 21.9 H, Glucose 102, Calcium 8.2 L, Total Bilirubin 0.50, AST 92 H, ALT 79 H, Alkaline Phosphatase 47, Total Protein 6.7, Albumin 2.6 L, Globulin 4.1, Albumin/Globulin Ratio 0.6 L Current Medications Acetaminophen (Tylenol) 650 mg PO Q6H PRN PRN PRN Reason: Pain Score 1-10/Temp > 100.7 F Ascorbic Acid (Vitamin C) [facility] Last Admin: 08/10/19 07:45 Dose: 1,000 mg Documented by: Enoxaparin Sodium (Lovenox) 40 mg SC DAILY [facility] Guaifenesin (Robitussin) 20 ml PO Q4H PRN PRN PRN Reason: COUGH Hydroxychloroquine Sulfate (Plaquenil) 200 [facility] Stop: 08/14/19 08:01 Sodium Chloride () 1,000 mls @ 75 mls/hr IV .[id number] [facility] Stop: 08/10/19 17:18 Last Admin: 08/09/19 22:16 Dose: 75 mls/hr Documented by: Piperacillin Sod/Tazobactam (Sod 3.375 gm/ Sodium Chloride) 50 mls @ 12.5 mls/hr IV Q8 [facility] Last Admin: 08/10/19 06:51 Dose: 12.5 mls/hr Documented by: Sodium Chloride () 250 mls @ 15 mls/hr IV .[id number] PRN PRN Reason: Saline Flush Last Infusion: 08/10/19 06:51 Dose: 0 mls/hr Documented by: Sodium Chloride () 250 mls @ 15 mls/hr IV .[id number] PRN PRN Reason: Additional IVPB Infusion Nutritional Formula (Lactose Free) (Ensure Enlive) 120 ml PO 4X/DAY KRISTIAN Sodium Chloride () 10 - 40 ml IV UD PRN PRN Reason: SALINE FLUSH Throat Lozenges (Cepacol Sore Throat Lozenge) 1 lozenge MUCOUS MEM Q2H PRN PRN PRN Reason: SORE THROAT Zinc Sulfate (Zinc Sulfate) 220 mg PO TID KRISTIAN Stop: 08/14/19 22:01 Last Admin: 08/10/19 06:52 Dose: 220 mg Documented by: Clinical Impression(s) from Imaging Studies Chest X-Ray 08/09/19 17:54 IMPRESSION: Patchy airspace opacities in the midlung fuentes bilaterally. This is likely infectious in etiology. Electronically Signed: Robi Sam, at 18:12 EDT Tel , Service support , Assessment/Plan All Active Problems SARS-associated coronavirus infection (Acute) Pneumonia (Acute) Hypoxia (Acute) RECOMMENDATIONS: 1. Limit IV fluids 2. Complete Plaquenil burst 3. Wean oxygen as tolerated 4. Patient okay with intubation if necessary 5. No IV steroids for now. IMPRESSIONS: 1. Acute hypoxic respiratory insufficiency secondary to COVID 19 Patient's COVID 19 status has been confirmed as an outpatient approximately a week ago. Patient was hypoxic on room air, but appears to be relatively stable on 3 L. Did discuss with the patient about the necessity to intubate early and she is open to intubation if necessary. Patient has been placed on Zosyn and Plaquenil therapy. Cultures are currently pending. Patient has remained afebrile, so Zosyn can likely be discontinued at 48 hours if negative. Patient does not have any history of obstructive lung disease, so steroids are likely not indicated. 2. Elevated transaminases Clinical suspicion for an element of viral hepatitis versus hepatic congestion secondary to elevated right-sided pressures associated with hypoxia. No active intervention would be required at this time from my perspective. Okay to monitor with intermittent LFTs. 3. Advanced age/protracted course/poor historian Complicates care, management, recovery and prognosis. Unclear onset. Patient has been diagnosed with COVID 19 7 days ago. Would anticipate she is over the initial worsening stage of infection. We will continue to monitor oxygen saturations. Cannot exclude the need for temporary oxygen on discharge. Pulmonary function testing for quantification and clarification of lung function would be completed several months from now to ensure new baseline. Inpatient E&M: [id number] Init Hosp L2
[2019-08-10] MEDS: Enoxaparin 40 MG/0.4 ML Syringe SC (09:36)
[2019-08-10] MEDS: 0.9% Normal Saline 1,000 ML 75 ML IV (10:58)
[2019-08-10 11:02] VITALS: BP 107/61; PULSE 74; RESP 18; TEMP 36.5; O2SAT 94
[2019-08-10 14:21] VITALS: BP 113/80; PULSE 75; RESP 18; TEMP 36.6; O2SAT 96
[2019-08-10] MEDS: Hydroxychloroquine 200 MG Tablet PO (16:57)
[2019-08-10 21:00] VITALS: BP 129/69; PULSE 78; RESP 18; TEMP 36.6; O2SAT 94
[2019-08-10] MEDS: 0.9% Saline Lock 10 ML Syringe IV (21:13)
[2019-08-11] VITALS (9 sets, daily range): BP systolic 118–143; BP diastolic 55–76; PULSE 67–81; RESP 18–20; TEMP 36.5–37.7; O2SAT 92–94
[2019-08-11] MEDS: Enoxaparin 40 MG/0.4 ML Syringe SC (08:02)
[2019-08-11] MEDS: Hydroxychloroquine 200 MG Tablet PO ×2 (08:03→17:21)
[2019-08-11] MEDS: Ascorbic Acid 500 MG Tablet 1000 MG PO ×2 (08:03→17:20)
--- NOTE | 2019-08-11 11:38 | CASEMGMT ---
RN CM Assessment. Attempted x 2 to speak with pt via phone. Pt is sleeping in room and unable to participate at this time. Isela KIMN RN ACM
--- NOTE | 2019-08-11 12:26 | CASEMGMT ---
RN CM Assessment Note Presentation: COVID-19 positive Intro role of CM and purpose of RN CM assessment to patient via phone. Pt is in isolation for COVID-19. Demographics, PCP and Pharmacy verified. Pt states she is still feeling unwell, tired and hopes she is able to return home, but feels weak with this illness. RN CM discussed options on dc and PT/OT evaluation to see pt. Pt states her is able to assist her some @ home. PCP: Dr. Cresencio Mckeon Specialists: none per pt Preferred Pharmacy: [facility] Insurance: [facility] Prescription Benefit: yes LNOK : , Fidel Oseguera Living Arrangements: Lives in one story home with . States prior to admission she was independent, did not use ambulatory DME and no care needs with ADL's. Pt states I don't know how I'm doing now, I'm pretty weak. Transportation: Drives DME: none per pt. HHC/SNF: none, but pt is agreeable to HHC if indicated. Discussed list for HHC agencies will be brought in by nurse, and determination can be discussed after PT/OT evaluations. Patient DC goals: Home DC PLAN: undetermined. PT/OT evaluations pending. Pt remains on 3L NC. May need Home oxygen testing if returning home and oxygen is eeded. Isela COOK RN ACM
--- NOTE | 2019-08-11 12:38 | PN_ITS ---
Patient Problems: Active and Suspected Problems SARS-associated coronavirus infection (Acute) Pneumonia (Acute) Hypoxia (Acute) Subjective: The patient was seen and examined at the bedside this morning. Events from the last 24 hours have been reviewed. The patient is currently afebrile, hemodynamically stable and maintaining appropriate oxygen saturations on 3 L/min via nasal cannula. The patient is currently on a 5 day course of Plaquenil. Objective: The patient's most recent lab work, culture data and imaging studies have all been personally reviewed. - Physical Exam Vitals/I&O's: Vital Signs Temp Pulse Resp BP Pulse Ox 97.7 F L 67 20 H 129/76 H 94 08/11/19 12:35 08/11/19 12:35 08/11/19 12:35 08/11/19 12:35 08/11/19 12:35 Oxygen Flow Rate (L/min) 3 Oxygen Delivery Method Nasal Cannula Weight: 147 lb 4 oz Body Mass Index (BMI) 29.1 Intake and Output for Last 24 Hours 08/09/19 08/10/19 08/11/19 23:59 23:59 23:59 Intake Total 100 / 100 2097.75 / 2097.75 404.75 / 404.75 Output Total 1000 / 1000 350 / 350 Balance 100 / -500 1097.75 / 1097.75 54.75 / 54.75 General: Alert, No apparent distress HEENT: Atraumatic, Normocephalic Oral: No Gingival or Mucosal Lesions/ Ulcerations Neck: Supple, No Nodes, Trachea Midline Lungs: No rhonchi, No wheeze, No rales, Diminished Cardiovascular: Regular rate, Regular Rhythm, Normal S1, Normal S2 Abdomen: Bowel Sounds Present, Soft, Non Tender Extremities: No clubbing, No cyanosis, No edema Skin: No breakdown Musculoskeletal: No Tenderness to Palpation of Joints or Extremities Neurological: Neuro grossly intact Psych/Mental Status: Normal Affect, Appropriate Labs (Last 48 Hours) 08/09/19 08/09/19 08/09/19 06:47 17:30 17:30 WBC 5.5 RBC 4.59 Hgb 13.8 Hct 41.4 MCV 90.2 MCH 30.1 MCHC 33.3 RDW Std Deviation 46.5 H RDW Coeff of Masha 14.2 Plt Count 254 MPV 9.3 Immature Gran % (Auto) 0.500 Neut % (Auto) 56.1 Lymph % (Auto) 35.9 [place] % (Auto) 7.5 Eos % (Auto) 0.0 Baso % (Auto) 0.0 Absolute Neuts (auto) 3.1 Absolute Lymphs (auto) 1.96 Nucleated RBC % 0 PT 13.5 INR 1.1 APTT 29.2 Sodium Potassium Chloride Carbon Dioxide Anion Gap BUN Creatinine Estim Creat Clear Calc Est GFR (MDRD) Af Amer Est GFR (MDRD) Non-Af BUN/Creatinine Ratio Glucose Lactic Acid Calcium Magnesium Total Bilirubin AST ALT Alkaline Phosphatase Troponin I Total Protein Albumin Globulin Albumin/Globulin Ratio Urine Color Yellow Urine Clarity Sl. Cloudy Urine pH 6.0 Ur Specific [place] 1.020 Urine Protein 100 H Urine Glucose (UA) Normal Urine Ketones 5 H Urine Occult Blood 10 H Urine Nitrite Negative Urine Bilirubin Negative Urine Urobilinogen 1 H Ur Leukocyte Esterase 500 H Urine RBC 0-5 SEEN Urine WBC 25-50 SEEN Ur Squamous Epith Cells 0-5 SEEN Urine Bacteria 1+ Urine Mucus 0 SEEN 08/09/19 08/09/19 08/09/19 17:30 17:30 17:30 WBC RBC Hgb Hct MCV MCH MCHC RDW Std Deviation RDW Coeff of Masha Plt Count MPV Immature Gran % (Auto) Neut % (Auto) Lymph % (Auto) [place] % (Auto) Eos % (Auto) Baso % (Auto) Absolute Neuts (auto) Absolute Lymphs (auto) Nucleated RBC % PT INR APTT Sodium 135 L Potassium 3.6 Chloride 100 Carbon Dioxide 27.0 Anion Gap 8 BUN 15 Creatinine 0.80 Estim Creat Clear Calc 41.63 Est GFR (MDRD) Af Amer 89 Est GFR (MDRD) Non-Af 74 BUN/Creatinine Ratio 18.8 Glucose 106 Lactic Acid 1.5 Calcium 8.4 L Magnesium 2.3 Total Bilirubin 0.60 AST 97 H ALT 77 H Alkaline Phosphatase 56 Troponin I < 0.015 Total Protein 7.7 Albumin 3.1 L Globulin 4.6 H Albumin/Globulin Ratio 0.7 L Urine Color Urine Clarity Urine pH Ur Specific [place] Urine Protein Urine Glucose (UA) Urine Ketones Urine Occult Blood Urine Nitrite Urine Bilirubin Urine Urobilinogen Ur Leukocyte Esterase Urine RBC Urine WBC Ur Squamous Epith Cells Urine Bacteria Urine Mucus 08/10/19 08/10/19 07:00 07:00 WBC 5.9 RBC 4.25 Hgb 12.8 Hct 39.0 MCV 91.8 MCH 30.1 MCHC 32.8 RDW Std Deviation 47.8 H RDW Coeff of Masha 14.4 Plt Count 256 MPV 9.6 Immature Gran % (Auto) 0.500 Neut % (Auto) 54.8 Lymph % (Auto) 35.7 [place] % (Auto) 6.8 Eos % (Auto) 2.0 Baso % (Auto) 0.2 Absolute Neuts (auto) 3.2 Absolute Lymphs (auto) 2.09 Nucleated RBC % 0 PT INR APTT Sodium 139 Potassium 3.5 Chloride 109 H Carbon Dioxide 23.0 Anion Gap 7 BUN 16 Creatinine 0.73 Estim Creat Clear Calc 33.30 Est GFR (MDRD) Af Amer 99 Est GFR (MDRD) Non-Af 82 BUN/Creatinine Ratio 21.9 H Glucose 102 Lactic Acid Calcium 8.2 L Magnesium Total Bilirubin 0.50 AST 92 H ALT 79 H Alkaline Phosphatase 47 Troponin I Total Protein 6.7 Albumin 2.6 L Globulin 4.1 Albumin/Globulin Ratio 0.6 L Urine Color Urine Clarity Urine pH Ur Specific [place] Urine Protein Urine Glucose (UA) Urine Ketones Urine Occult Blood Urine Nitrite Urine Bilirubin Urine Urobilinogen Ur Leukocyte Esterase Urine RBC Urine WBC Ur Squamous Epith Cells Urine Bacteria Urine Mucus Microbiology 08/09/19 06:47 Urine, Catheterized Urine Culture - Preliminary Gram positive ayde 08/10/19 09:40 Stool Enteric Bacteriology - Final Clinical Impression(s) from Imaging Studies Chest X-Ray 08/09/19 17:54 IMPRESSION: Patchy airspace opacities in the midlung fuentes bilaterally. This is likely infectious in etiology. Electronically Signed: Robi Sam, at 18:12 EDT Tel , Service support , Current Medications Acetaminophen (Tylenol) 650 mg PO Q6H PRN PRN PRN Reason: Pain Score 1-10/Temp > 100.7 F Ascorbic Acid (Vitamin C) 1,000 mg PO BIDCM [facility] Last Admin: 08/11/19 08:03 Dose: 1,000 mg Documented by: Enoxaparin Sodium (Lovenox) 40 mg SC DAILY [facility] Last Admin: 08/11/19 08:02 Dose: 40 mg Documented by: Guaifenesin (Robitussin) 20 ml PO Q4H PRN PRN PRN Reason: COUGH Hydroxychloroquine Sulfate (Plaquenil) 200 mg PO BIDCM [facility] Stop: 08/14/19 08:01 Last Admin: 08/11/19 08:03 Dose: 200 mg Documented by: Sodium Chloride () 250 mls @ 15 mls/hr IV .[id number] PRN PRN Reason: Saline Flush Last Infusion: 08/11/19 09:35 Dose: 15 mls/hr Documented by: Sodium Chloride () 250 mls @ 15 mls/hr IV .[id number] PRN PRN Reason: Additional IVPB Infusion Nutritional Formula (Lactose Free) (Ensure Enlive) 120 ml PO 4X/DAY [facility] Last Admin: 08/11/19 08:02 Dose: Not Given Documented by: Ondansetron HCl (Zofran) 4 mg IV Q8H PRN PRN PRN Reason: NAUSEA/VOMITING Sodium Chloride () 10 - 40 ml IV UD PRN PRN Reason: SALINE FLUSH Last Admin: 08/10/19 21:13 Dose: 10 ml Documented by: Throat Lozenges (Cepacol Sore Throat Lozenge) 1 lozenge MUCOUS MEM Q2H PRN PRN PRN Reason: SORE THROAT Zinc Sulfate (Zinc Sulfate) 220 mg PO TID [facility] Stop: 08/14/19 22:01 Last Admin: 08/11/19 05:32 Dose: 220 mg Documented by: Medical Necessity - Tobacco Use Smoking Status: Former smoker Tobacco Use: Non-smoker Assessment/Plan All Active Problems SARS-associated coronavirus infection (Acute) Pneumonia (Acute) Hypoxia (Acute) RECOMMENDATIONS: 1. Continue supplemental oxygen to maintain saturations at or above 90%. 2. Continue antimicrobials per infectious diseases recommendations, along with 5 day course of Plaquenil. 3. Encourage incentive spirometer use and mobilize patient as tolerated. 4. Please call with any increase is supplemental oxygen need. IMPRESSIONS: 1. Acute hypoxic respiratory insufficiency secondary to COVID 19 Patient's COVID 19 status has been confirmed as an outpatient approximately a week ago. Patient was hypoxic on room air, but appears to be relatively stable on 3 L. The patient will be continued on antimicrobial therapy per infectious diseases recommendations, along with Plaquenil. Continue current supportive measures. Low threshold for intubation if supplemental oxygen need exceeds 6 L/min. 2. Advanced age/protracted course/poor historian Complicates care, management, recovery and prognosis. Pulmonary function testing for quantification and clarification of lung function would be completed several months from now to ensure new baseline. This note was generated with [employer] dictation software. It may contain incorrect words, spelling, and punctuation that were not noted in checking the note before signing. Inpatient E&M: [id number] Subs Hosp L2
--- NOTE | 2019-08-11 14:34 | PCM.HP.ID ---
Problem List (1) SARS-associated coronavirus infection Status: Acute Reason for Consult: covid Consulted by: Dr. 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 Developed dry cough, fever, not feeling well about 10 days prior to admit. COVID was (+), had been on home quarantine. now starting to have a cough. She developed shortness of breath, came to ED. No chest pain, no n/v/d. Started on plaquenil, feeling about the same. Full ROS performed and neg except as noted above. - Medical History Surgical History: reviewed Allergies/Adverse Reactions: Allergies codeine Adverse Reaction (Verified 08/09/19 17:34) Other Home Medications: Ambulatory Orders Medication Instructions Recorded NK 08/09/19 - Social History Tobacco Use: non-smoker Vital Signs Temp Pulse Resp BP Pulse Ox 97.7 F L 67 20 H 129/76 H 94 08/11/19 12:35 08/11/19 12:35 08/11/19 12:35 08/11/19 12:35 08/11/19 12:35 Oxygen Flow Rate (L/min) 3 Oxygen Delivery Method Nasal Cannula Weight: 66.791 kg Body Mass Index (BMI) 29.1 Microbiology Past 72 Hours 08/09/19 06:47 Urine Culture - Preliminary Urine, Catheterized Gram positive ayde 08/10/19 09:40 Enteric Bacteriology - Final Stool - Other Studies Radiology: [] reviewed Other Studies: [] Route of nutrition/ use of supplements: [] Nutritional Intake: [] IV Site: [] Rao Catheter: [] - Physical Exam General: Alert, Oriented x3, Cooperative, No apparent distress HEENT: Atraumatic, PERRLA, EOMI Neck: Supple, No Nodes Lungs: Diminished Cardiovascular: Regular rate, Regular Rhythm Abdomen: Soft, Non Tender, Non-Distended Extremities: No edema Skin: No rashes IV Site: Peripheral, without redness Musculoskeletal: No Tenderness to Palpation of Joints or Extremities Neurological: Cranial nerves II-XII grossly intact - Assessment/Plan Antibiotics: [] Assessment/Plan: [] Active and Suspected Problems SARS-associated coronavirus infection (Acute) Pneumonia (Acute) Hypoxia (Acute) covid (+) - no fever here, O2 reqs improving. Cxs neg, will stop zosyn. Cont 5 day total course of plaquenil. Will follow, thank you.
--- NOTE | 2019-08-11 15:42 | PN_ITS ---
Patient Problems: Active and Suspected Problems SARS-associated coronavirus infection (Acute) Pneumonia (Acute) Hypoxia (Acute) Subjective: Feeling okay, remains afebrile but still with a cough. She does feel very weak. Vitals/I&O's: Vital Signs Temp Pulse Resp BP Pulse Ox 97.7 F L 67 20 H 129/76 H 94 08/11/19 12:35 08/11/19 12:35 08/11/19 12:35 08/11/19 12:35 08/11/19 12:35 Oxygen Flow Rate (L/min) 3 Oxygen Delivery Method Nasal Cannula Weight: 147 lb 4 oz Body Mass Index (BMI) 29.1 Intake and Output for Last 24 Hours 08/09/19 08/10/19 08/11/19 23:59 23:59 23:59 Intake Total 100 / 100 2097.75 / 2097.75 481.75 / 481.75 Output Total 1000 / 1000 350 / 350 Balance 100 / -500 1097.75 / 1097.75 131.75 / 131.75 General: Alert, Oriented x3, Cooperative, No apparent distress HEENT: Atraumatic, PERRLA, EOMI, Normocephalic Oral: Moist Mucosa Neck: Supple, No JVD Lungs: Clear to auscultation, Normal air movement, No rhonchi, No wheeze, No rales, Diminished Cardiovascular: Regular rate, Regular Rhythm, Normal S1, Normal S2, No murmurs Abdomen: Soft, Non Tender, Non-Distended, No Hepato-splenomegaly Extremities: No edema, Capillary Refill Less than 3 Seconds Skin: No rashes, No breakdown Neurological: Neuro grossly intact, Sensory exam intact to light touch and pain Psych/Mental Status: Normal Affect, Appropriate Microbiology Past 72 Hours 08/09/19 06:47 Urine, Catheterized Urine Culture - Preliminary Gram positive ayde 08/10/19 09:40 Stool Enteric Bacteriology - Final Current Medications Acetaminophen (Tylenol) 650 mg PO Q6H PRN PRN PRN Reason: Pain Score 1-10/Temp > 100.7 F Ascorbic Acid (Vitamin C) 1,000 mg PO BIDCM [facility] Last Admin: 08/11/19 08:03 Dose: 1,000 mg Documented by: Enoxaparin Sodium (Lovenox) 40 mg SC DAILY [facility] Last Admin: 08/11/19 08:02 Dose: 40 mg Documented by: Guaifenesin (Robitussin) 20 ml PO Q4H PRN PRN PRN Reason: COUGH Hydroxychloroquine Sulfate (Plaquenil) 200 mg PO BIDCM [facility] Stop: 08/14/19 08:01 Last Admin: 08/11/19 08:03 Dose: 200 mg Documented by: Sodium Chloride () 250 mls @ 15 mls/hr IV .[id number] PRN PRN Reason: Saline Flush Last Infusion: 08/11/19 14:43 Dose: 0 mls/hr Documented by: Sodium Chloride () 250 mls @ 15 mls/hr IV .[id number] PRN PRN Reason: Additional IVPB Infusion Nutritional Formula (Lactose Free) (Ensure Enlive) 120 ml PO 4X/DAY [facility] Last Admin: 08/11/19 14:28 Dose: Not Given Documented by: Ondansetron HCl (Zofran) 4 mg IV Q8H PRN PRN PRN Reason: NAUSEA/VOMITING Sodium Chloride () 10 - 40 ml IV UD PRN PRN Reason: SALINE FLUSH Last Admin: 08/10/19 21:13 Dose: 10 ml Documented by: Throat Lozenges (Cepacol Sore Throat Lozenge) 1 lozenge MUCOUS MEM Q2H PRN PRN PRN Reason: SORE THROAT Zinc Sulfate (Zinc Sulfate) 220 mg PO TID [facility] Stop: 08/14/19 22:01 Last Admin: 08/11/19 14:29 Dose: 220 mg Documented by: STROKE Vital Signs/Narrative: Vital Signs Temp Pulse Resp BP Pulse Ox 08/11/19 12:35 97.7 F L 67 20 H 129/76 H 94 Medical Necessity - Tobacco Use Smoking Status: Former smoker Tobacco Use: Non-smoker Assessment/Plan All Active Problems SARS-associated coronavirus infection (Acute) Pneumonia (Acute) Hypoxia (Acute) 1. Acute hypoxic respiratory insufficiency secondary to COVID-19 -Patient ID and pulmonology assistance -DC Zosyn continue with Plaquenil for a total of 5 days -Wean O2 and adjust positioning, still on 3L NC 2. Elevated LFTs -Will continue to trend, etiology unclear, likely related to COVID -Asymptomatic DVT: Lovenox Inpatient E&M: [id number] Subs Hosp L2
[2019-08-11] MEDS: proMETHazine 25 MG/ML Syringe 12.5 MG IV (21:59)
[2019-08-11] MEDS: 0.9% Saline Lock 10 ML Syringe IV (22:00)
[2019-08-12] VITALS (10 sets, daily range): BP systolic 126–149; BP diastolic 60–67; PULSE 64–91; RESP 16–24; TEMP 36.7–37.7; O2SAT 93–96
--- NOTE | 2019-08-12 08:24 | PCM.PN.HOSP ---
Patient Problems: Active and Suspected Problems SARS-associated coronavirus infection (Acute) Pneumonia (Acute) Hypoxia (Acute) Subjective: Still feels weak, and still has a slight cough though she does feel that she is improving. Vitals/I&O's: Vital Signs Temp Pulse Resp BP Pulse Ox 99.4 F H 64 16 126/64 H 93 08/12/19 03:12 08/12/19 07:20 08/12/19 03:12 08/12/19 03:12 08/12/19 03:12 Oxygen Flow Rate (L/min) 3 Oxygen Delivery Method Nasal Cannula Weight: 147 lb 11.355 oz Body Mass Index (BMI) 29.1 Intake and Output for Last 24 Hours 08/10/19 08/11/19 08/12/19 23:59 23:59 23:59 Intake Total 2097.75 / 2097.75 721.75 / 721.75 Output Total 1000 / 1000 750 / 750 300 / 300 Balance 1097.75 / 1097.75 -28.25 / -28.25 -300 / -300 General: Alert, Oriented x3, Cooperative, No apparent distress HEENT: Atraumatic, PERRLA, EOMI, Normocephalic Oral: Moist Mucosa Neck: Supple, No JVD Lungs: Clear to auscultation, Normal air movement, No rhonchi, No wheeze, No rales, Diminished Cardiovascular: Regular rate, Regular Rhythm, Normal S1, Normal S2, No murmurs Abdomen: Soft, Non Tender, Non-Distended, No Hepato-splenomegaly Extremities: No edema, Capillary Refill Less than 3 Seconds Skin: No rashes, No breakdown Neurological: Neuro grossly intact, Sensory exam intact to light touch and pain Psych/Mental Status: Normal Affect, Appropriate Microbiology Past 72 Hours 08/09/19 06:47 Urine, Catheterized Urine Culture - Final Corynebacterium minutissimum 08/09/19 17:30 Blood Culture (Wb) - Anticubital Left Blood Culture - Preliminary No growth in 48 hours. 08/09/19 17:35 Blood Culture (Wb) - No Site/Description Given Blood Culture - Preliminary No growth in 48 hours. 08/10/19 09:40 Stool Enteric Bacteriology - Final Laboratory Results 08/12/19 08:06: Sodium Pending, Potassium Pending, Chloride Pending, Carbon Dioxide Pending, Anion Gap Pending, BUN Pending, Creatinine Pending, Est GFR (MDRD) Af Amer Pending, Est GFR (MDRD) Non-Af Pending, BUN/Creatinine Ratio Pending, Glucose Pending, Calcium Pending, Phosphorus Pending, Magnesium Pending Current Medications Acetaminophen (Tylenol) 650 mg PO Q6H PRN PRN PRN Reason: Pain Score 1-10/Temp > 100.7 F Ascorbic Acid ([facility]itamin C) [facility] Last Admin: 08/11/19 17:20 Dose: 1,000 mg Documented by: Enoxaparin Sodium (Lovenox) 40 mg SC DAILY [facility] Last Admin: 08/11/19 08:02 Dose: 40 mg Documented by: Guaifenesin (Robitussin) 20 ml PO Q4H PRN PRN PRN Reason: COUGH Hydroxychloroquine Sulfate (Plaquenil) [facility] Stop: 08/14/19 08:01 Last Admin: 08/11/19 17:21 Dose: 200 mg Documented by: Sodium Chloride () 250 mls @ 15 mls/hr IV .[id number] PRN PRN Reason: Saline Flush Last Infusion: 08/11/19 18:15 Dose: Infused Documented by: Sodium Chloride () 250 mls @ 15 mls/hr IV .[id number] PRN PRN Reason: Additional IVPB Infusion Nutritional Formula (Lactose Free) (Ensure Enlive) 120 ml PO 4X/DAY [facility] Last Admin: 08/11/19 21:06 Dose: Not Given Documented by: Ondansetron HCl (Zofran) 4 mg IV Q8H PRN PRN PRN Reason: NAUSEA/VOMITING Promethazine HCl (Phenergan) 12.5 mg IV Q6H PRN PRN PRN Reason: NAUSEA/VOMITING Last Admin: 08/11/19 21:59 Dose: 12.5 mg Documented by: Sodium Chloride () 10 - 40 ml IV UD PRN PRN Reason: SALINE FLUSH Last Admin: 08/11/19 22:00 Dose: 10 ml Documented by: Throat Lozenges (Cepacol Sore Throat Lozenge) 1 lozenge MUCOUS MEM Q2H PRN PRN PRN Reason: SORE THROAT Zinc Sulfate (Zinc Sulfate) 220 mg PO TID [facility] Stop: 08/14/19 22:01 Last Admin: 08/12/19 06:11 Dose: Not Given Documented by: STROKE Vital Signs/Narrative: Vital Signs Pulse 08/12/19 07:20 64 Medical Necessity - Tobacco Use Smoking Status: Former smoker Tobacco Use: Non-smoker Assessment/Plan All Active Problems SARS-associated coronavirus infection (Acute) Pneumonia (Acute) Hypoxia (Acute) 1. Acute hypoxic respiratory insufficiency secondary to COVID-19 -Patient ID and pulmonology assistance -continue with Plaquenil for a total of 5 days -Wean O2 and adjust positioning, still on 3L NC -Urine culture with corynebacterium 2. Elevated LFTs -Will continue to trend, etiology unclear, likely related to COVID -Asymptomatic Disposition: She will likely need SNF placement on discharge however being coronavirus positive will likely make this near impossible, will continue to discuss with social work and case management on discharge planning DVT: Lovenox Inpatient E&M: [id number] Subs Hosp L2
[2019-08-12 08:25] LABS: Anion Gap 5 (5-15); BUN 12 mg/dL (7-18); BUN/Creat Ratio 22.9 RATIO (10-20); Calcium,Total 8.1 mg/dL (8.5-10.1); Chloride 112 mmol/L (98-107); Creatinine, Serum 0.52 mg/dL (0.55-1.02); EST Glomerular Filtration Rate 120 mL/min (>60); Est Glom Filt Rate - Afr Amer 145 mL/min (>60); Glucose 89 mg/dL (74-106); Magnesium 2.2 mg/dL (1.6-2.6); Phosphorus 3.2 mg/dL (2.5-4.9); Potassium 3.2 mmol/L (3.5-5.1); Sodium Level 142 mmol/L (136-145)
[2019-08-12] MEDS: Enoxaparin 40 MG/0.4 ML Syringe SC (08:48)
[2019-08-12] MEDS: Hydroxychloroquine 200 MG Tablet PO ×2 (08:49→17:03)
[2019-08-12] MEDS: Ascorbic Acid 500 MG Tablet 1000 MG PO ×2 (08:49→17:03)
--- NOTE | 2019-08-12 11:50 | NURSING ---
Notified MD irene 3.2
--- NOTE | 2019-08-12 12:30 | CASEMGMT ---
KYLAH CASTRO Note: Called to room to speak with patient. Pt states she is still feeling weak and tired. States she is sleeping alot. Was able to participate in dc planning discussion. KYLAH CASTRO spoke with patient regarding PT/OT notes and recommendation by physician that pt may need SNF. Pt is adamant she will return home on discharge and her can help. -Discussed Home Health. Pt is agreeable to Home Health SN, PT but has not decided on which agency. Reviewed local agencies with her, and pt does have her list in room. -Discussed oxygen may be needed on discharge. Reviewed local DME providers. Pt is agreeable to [facility]. KYLAH CASTRO let pt know CM will call her again tomorrow to finalize dc needs. Pt thanked GLORIA and is agreeable to continue dc planning via phone calls. Isela COOK RN ACM
[2019-08-12] MEDS: proMETHazine 25 MG/ML Syringe 12.5 MG IV ×2 (15:06→21:18)
[2019-08-12] MEDS: 0.9% Saline Lock 10 ML Syringe IV ×2 (15:07→21:18)
[2019-08-13] VITALS (9 sets, daily range): BP systolic 128–151; BP diastolic 47–94; PULSE 72–89; RESP 15–24; TEMP 37.3–38; O2SAT 94–96
--- NOTE | 2019-08-13 09:09 | PCM.PN.HOSP ---
Patient Problems: Active and Suspected Problems SARS-associated coronavirus infection (Acute) Pneumonia (Acute) Hypoxia (Acute) Subjective: Feels about the same, maintained that she would like to go home with home health. She has a little bit of an appetite today Vitals/I&O's: Vital Signs Temp Pulse Resp BP Pulse Ox 99.2 F H 72 15 137/94 H 94 08/13/19 03:04 08/13/19 07:31 08/13/19 03:04 08/13/19 03:04 08/13/19 03:04 Oxygen Flow Rate (L/min) 3 Oxygen Delivery Method Nasal Cannula Weight: 142 lb 3.2 oz Body Mass Index (BMI) 29.1 Intake and Output for Last 24 Hours 08/11/19 08/12/19 08/13/19 23:59 23:59 23:59 Intake Total 721.75 / 721.75 600 / 600 Output Total 750 / 750 300 / 300 450 / 450 Balance -28.25 / -28.25 300 / 300 -450 / -450 General: Alert, Oriented x3, Cooperative, No apparent distress HEENT: Atraumatic, PERRLA, EOMI, Normocephalic Oral: Moist Mucosa Neck: Supple, No JVD Lungs: Clear to auscultation, Normal air movement, No rhonchi, No wheeze, No rales, Diminished Cardiovascular: Regular rate, Regular Rhythm, Normal S1, Normal S2, No murmurs Abdomen: Soft, Non Tender, Non-Distended, No Hepato-splenomegaly Extremities: No edema, Capillary Refill Less than 3 Seconds Skin: No rashes, No breakdown Neurological: Neuro grossly intact, Sensory exam intact to light touch and pain Psych/Mental Status: Normal Affect, Appropriate Microbiology Past 72 Hours 08/09/19 06:47 Urine, Catheterized Urine Culture - Final Corynebacterium minutissimum 08/09/19 17:30 Blood Culture (Wb) - Anticubital Left Blood Culture - Preliminary No growth in 48 hours. 08/09/19 17:35 Blood Culture (Wb) - No Site/Description Given Blood Culture - Preliminary No growth in 48 hours. 08/10/19 09:40 Stool Enteric Bacteriology - Final Current Medications Acetaminophen (Tylenol) 650 mg PO Q6H PRN PRN PRN Reason: Pain Score 1-10/Temp > 100.7 F Ascorbic Acid (Vitamin C) 1,000 mg PO BIDCM [facility] Last Admin: 08/12/19 17:03 Dose: 1,000 mg Documented by: Enoxaparin Sodium (Lovenox) 40 mg SC DAILY [facility] Last Admin: 08/12/19 08:48 Dose: 40 mg Documented by: Guaifenesin (Robitussin) 20 ml PO Q4H PRN PRN PRN Reason: COUGH Hydroxychloroquine Sulfate (Plaquenil) 200 mg PO BIDCM [facility] Stop: 08/14/19 08:01 Last Admin: 08/12/19 17:03 Dose: 200 mg Documented by: Sodium Chloride () 250 mls @ 15 mls/hr IV .[id number] PRN PRN Reason: Saline Flush Last Infusion: 08/11/19 18:15 Dose: Infused Documented by: Sodium Chloride () 250 mls @ 15 mls/hr IV .[id number] PRN PRN Reason: Additional IVPB Infusion Nutritional Formula (Lactose Free) (Ensure Enlive) 120 ml PO 4X/DAY [facility] Last Admin: 08/12/19 21:18 Dose: 120 ml Documented by: Ondansetron HCl (Zofran) 4 mg IV Q8H PRN PRN PRN Reason: NAUSEA/VOMITING Promethazine HCl (Phenergan) 12.5 mg IV Q6H PRN PRN PRN Reason: NAUSEA/VOMITING Last Admin: 08/12/19 21:18 Dose: 12.5 mg Documented by: Sodium Chloride () 10 - 40 ml IV UD PRN PRN Reason: SALINE FLUSH Last Admin: 08/12/19 21:18 Dose: 10 ml Documented by: Throat Lozenges (Cepacol Sore Throat Lozenge) 1 lozenge MUCOUS MEM Q2H PRN PRN PRN Reason: SORE THROAT Zinc Sulfate (Zinc Sulfate) 220 mg PO TID [facility] Stop: 08/14/19 22:01 Last Admin: 08/13/19 06:02 Dose: Not Given Documented by: STROKE Vital Signs/Narrative: Vital Signs Pulse 08/13/19 07:31 72 Medical Necessity - Tobacco Use Smoking Status: Former smoker Tobacco Use: Non-smoker Assessment/Plan All Active Problems SARS-associated coronavirus infection (Acute) Pneumonia (Acute) Hypoxia (Acute) 1. Acute hypoxic respiratory insufficiency secondary to COVID-19 -Appreciate ID and pulmonology assistance -continue with Plaquenil for a total of 5 days, last dose is 08/14/2019 in the morning -Wean O2 and adjust positioning, still on 3L NC -Urine culture with corynebacterium 2. Elevated LFTs -Will continue to trend, etiology unclear, likely related to COVID -Asymptomatic Disposition: She will likely need SNF placement on discharge however being coronavirus positive will likely make this near impossible, will continue to discuss with social work and case management on discharge planning, as well as the patient as she feels that she should be able to go home DVT: Lovenox Inpatient E&M: [id number] Subs Hosp L2
[2019-08-13] MEDS: Enoxaparin 40 MG/0.4 ML Syringe SC (09:26)
[2019-08-13] MEDS: Ascorbic Acid 500 MG Tablet 1000 MG PO ×2 (09:27→17:03)
[2019-08-13] MEDS: Hydroxychloroquine 200 MG Tablet PO ×2 (09:28→17:03)
[2019-08-13] MEDS: Acetaminophen 325 MG Tablet 650 MG PO ×2 (11:49→21:28)
--- NOTE | 2019-08-13 13:22 | PN.ID_ITS ---
Patient Problems: Active and Suspected Problems SARS-associated coronavirus infection (Acute) Pneumonia (Acute) Hypoxia (Acute) Subjective: Feeling better, still poor appetite, no fever. - Physical Exam Vitals/I&O's: Vital Signs Temp Pulse Resp BP Pulse Ox 99.2 F H 89 24 H 131/55 H 96 08/13/19 09:00 08/13/19 09:00 08/13/19 09:00 08/13/19 09:00 08/13/19 09:00 Oxygen Flow Rate (L/min) 4 Oxygen Delivery Method Nasal Cannula Weight: 64.501 kg Body Mass Index (BMI) 29.1 Intake and Output for Last 24 Hours 08/11/19 08/12/19 08/13/19 23:59 23:59 23:59 Intake Total 721.75 / 721.75 600 / 600 240 / 240 Output Total 750 / 750 300 / 300 450 / 450 Balance -28.25 / -28.25 300 / 300 -210 / -210 General: Alert, Cooperative, No apparent distress Lungs: Diminished - improved lung sounds Cardiovascular: Regular rate, Regular Rhythm Abdomen: Soft, Non Tender, Non-Distended Skin: No rashes Microbiology Past 72 Hours 08/09/19 06:47 Urine, Catheterized Urine Culture - Final Corynebacterium minutissimum 08/09/19 17:30 Blood Culture (Wb) - Anticubital Left Blood Culture - Preliminary No growth in 48 hours. 08/09/19 17:35 Blood Culture (Wb) - No Site/Description Given Blood Culture - Preliminary No growth in 48 hours. 08/10/19 09:40 Stool Enteric Bacteriology - Final Current Medications Acetaminophen (Tylenol) 650 mg PO Q6H PRN PRN PRN Reason: Pain Score 1-10/Temp > 100.7 F Last Admin: 08/13/19 11:49 Dose: 650 mg Documented by: Ascorbic Acid (Vitamin C) 1,000 mg PO BIDCM [facility] Last Admin: 08/13/19 09:27 Dose: 1,000 mg Documented by: Enoxaparin Sodium (Lovenox) 40 mg SC DAILY [facility] Last Admin: 08/13/19 09:26 Dose: 40 mg Documented by: Guaifenesin (Robitussin) 20 ml PO Q4H PRN PRN PRN Reason: COUGH Hydroxychloroquine Sulfate (Plaquenil) 200 mg PO BIDCM [facility] Stop: 08/14/19 08:01 Last Admin: 08/13/19 09:28 Dose: 200 mg Documented by: Sodium Chloride () 250 mls @ 15 mls/hr IV .[id number] PRN PRN Reason: Saline Flush Last Infusion: 08/11/19 18:15 Dose: Infused Documented by: Sodium Chloride () 250 mls @ 15 mls/hr IV .[id number] PRN PRN Reason: Additional IVPB Infusion Nutritional Formula (Lactose Free) (Ensure Enlive) 120 ml PO 4X/DAY [facility] Last Admin: 08/13/19 09:28 Dose: Not Given Documented by: Ondansetron HCl (Zofran) 4 mg IV Q8H PRN PRN PRN Reason: NAUSEA/VOMITING Promethazine HCl (Phenergan) 12.5 mg IV Q6H PRN PRN PRN Reason: NAUSEA/VOMITING Last Admin: 08/12/19 21:18 Dose: 12.5 mg Documented by: Sodium Chloride () 10 - 40 ml IV UD PRN PRN Reason: SALINE FLUSH Last Admin: 08/12/19 21:18 Dose: 10 ml Documented by: Throat Lozenges (Cepacol Sore Throat Lozenge) 1 lozenge MUCOUS MEM Q2H PRN PRN PRN Reason: SORE THROAT Zinc Sulfate (Zinc Sulfate) 220 mg PO TID [facility] Stop: 08/14/19 22:01 Last Admin: 08/13/19 06:02 Dose: Not Given Documented by: Medical Necessity - Tobacco Use Smoking Status: Former smoker Tobacco Use: Non-smoker Route of nutrition/ use of supplements: [] Nutritional Intake: [] IV Site: [] Rao Catheter: [] - Assessment/Plan Antibiotics: [] Assessment/Plan: [] Active and Suspected Problems SARS-associated coronavirus infection (Acute) Pneumonia (Acute) Hypoxia (Acute) covid (+) - no fever here, still on O2, feeling better, lungs sound better. Cont 5 day total course of plaquenil, last dose tomorrow AM, plan on home with one more week of quarantine. Will follow
--- NOTE | 2019-08-13 14:15 | CASEMGMT ---
RN GLORIA NOTE: Call paced to pt's room. Inquired if pt has decided on HHC agency. Pt states, I have not looked at it yet, but whoever you recommend, I would be fine with. Pt made aware KYLAH CASTRO is not able to give recommendations. Pt stated she has had HHC in the past and does not have a preference, stating, I don't care. I just want to get better. Pt aware [facility] has HHC and agreeable to having referral made with them. Call placed to Komal @ [facility] and referral made. She was made aware pt is COVID +. Komal states this will be reviewed and MS2 KYLAH CASTRO will be notified once decision is made. Roz COOK RN CM
--- NOTE | 2019-08-13 14:57 | CASEMGMT ---
Social Work Note SW received call from Nick Hightower with [facility] stating [facility] received referral and just wanted to make sure pt going home with [facility] is the safest and best option for pt at this time. SW reviewed PT/OT. Pt has yet to walk with PT/OT, states that she is not feeling well. SW placed a call to pt's room as pt has tested positive for COVID and is in isolations. SW discussed with pt regarding home with HHC vs. SNF. SW explained that this worker is just wanting to make sure that pt is strong enough to return home at this time and that it is the safest option for pt. SW explained going to SNF for about a week for additional strength exercises and how it could be beneficial for pt. Pt denied SNF. Pt states I think it will be better for me just to return home at this time. Pt states she has her at home and her son is living with her as well and is able to assist if needed. SW explained the benefits of getting up with therapy and actually walking around with PT/OT. Pt states I just haven't been feeling all the well and that is why I haven't done much walking. SW informed pt that this worker understands that but again states the importance of getting up with PT/OT daily. Pt states understanding. Pt states that she will do better at home and prefers to return home with [facility]. SW placed a call back to Nick Hightower and updated her on above information. Katlyn Felix [employer] REPAIR TEACHER, GEOPHYSICAL SUPPORT SPECIALIST
--- NOTE | 2019-08-13 15:45 | CASEMGMT ---
RN GLORIA NOTE: Pt's daughter, Tatianna, called in to talk with pt's RN to inquire about how pt is doing. This RN CM called to pt's room. Pt gave permission for staff to talk with Tatianna re: her condition and updates. RNRay, made aware. This RN GLORIA spoke with Tatianna and updated her that we are currently working on getting HHC set up and are awaiting if [facility] able to accept her as a pt. Tatianna states is thankful to hear this, but states if HHC is not able to take her and if pt needs assistance once returning home, that she would be able to come to her home to help to take care of her. Roz COOK RN CM
[2019-08-14] VITALS (13 sets, daily range): BP systolic 119–160; BP diastolic 51–76; PULSE 65–108; RESP 18–22; TEMP 36.6–37.3; O2SAT 93–96
[2019-08-14 07:46] LABS: ALB/GLOB Ratio 0.5 RATIO (0.9-2.4); AST(SGOT) 68 U/L (15-37); Alanine Aminotransfer ALT/SGPT 98 U/L (13-56); Albumin, Serum 2.5 g/dL (3.2-5.0); Alkaline Phosphatase 86 U/L (45-117); Anion Gap 4 (5-15); BUN 12 mg/dL (7-18); BUN/Creat Ratio 21.1 RATIO (10-20); Calcium,Total 8.8 mg/dL (8.5-10.1); Chloride 108 mmol/L (98-107); Creatinine, Serum 0.57 mg/dL (0.55-1.02); EST Glomerular Filtration Rate 109 mL/min (>60); Est Glom Filt Rate - Afr Amer 132 mL/min (>60); Globulin 4.6 g/dL (2.2-4.2); Glucose 86 mg/dL (74-106); Potassium 3.8 mmol/L (3.5-5.1); Protein, Total 7.1 g/dL (6.4-8.2); Sodium Level 139 mmol/L (136-145)
--- NOTE | 2019-08-14 08:46 | PCM.PN.HOSP ---
Patient Problems: Active and Suspected Problems SARS-associated coronavirus infection (Acute) Pneumonia (Acute) Hypoxia (Acute) Subjective: Has a little bit more of an appetite, however still needing 3 L nasal cannula unfortunately given her isolation she is unable to ambulate for any significant distance Vitals/I&O's: Vital Signs Temp Pulse Resp BP Pulse Ox 97.9 F 81 22 H 141/70 H 94 08/14/19 05:00 08/14/19 07:01 08/14/19 05:00 08/14/19 05:00 08/14/19 07:36 Oxygen Flow Rate (L/min) 3 Oxygen Delivery Method Nasal Cannula Weight: 147 lb 14.4 oz Body Mass Index (BMI) 29.1 Intake and Output for Last 24 Hours 08/12/19 08/13/19 08/14/19 23:59 23:59 23:59 Intake Total 600 / 600 720 / 720 120 / 120 Output Total 300 / 300 450 / 450 Balance 300 / 300 270 / 270 120 / 120 General: Alert, Oriented x3, Cooperative, No apparent distress HEENT: Atraumatic, PERRLA, EOMI, Normocephalic Oral: Moist Mucosa Neck: Supple, No JVD Lungs: Clear to auscultation, Normal air movement, No rhonchi, No wheeze, No rales, Diminished Cardiovascular: Regular rate, Regular Rhythm, Normal S1, Normal S2, No murmurs Abdomen: Soft, Non Tender, Non-Distended, No Hepato-splenomegaly Extremities: No edema, Capillary Refill Less than 3 Seconds Skin: No rashes, No breakdown Neurological: Neuro grossly intact, Sensory exam intact to light touch and pain Psych/Mental Status: Normal Affect, Appropriate Microbiology Past 72 Hours 08/09/19 06:47 Urine, Catheterized Urine Culture - Final Corynebacterium minutissimum 08/09/19 17:30 Blood Culture (Wb) - Anticubital Left Blood Culture - Preliminary No growth in 48 hours. 08/09/19 17:35 Blood Culture (Wb) - No Site/Description Given Blood Culture - Preliminary No growth in 48 hours. Laboratory Results 08/14/19 07:00: Sodium 139, Potassium 3.8, Chloride 108 H, Carbon Dioxide 27.0, Anion Gap 4 L, BUN 12, Creatinine 0.57, Estim Creat Clear Calc 33.30, Est GFR (MDRD) Af Amer 132, Est GFR (MDRD) Non-Af 109, BUN/Creatinine Ratio 21.1 H, Glucose 86, Calcium 8.8, Total Bilirubin 0.90, AST 68 H, ALT 98 H, Alkaline Phosphatase 86, Total Protein 7.1, Albumin 2.5 L, Globulin 4.6 H, Albumin/Globulin Ratio 0.5 L Current Medications Acetaminophen (Tylenol) 650 mg PO Q6H PRN PRN PRN Reason: Pain Score 1-10/Temp > 100.7 F Last Admin: 08/13/19 21:28 Dose: 650 mg Documented by: Ascorbic Acid (Vitamin C) 1,000 mg PO BIDCM [facility] Last Admin: 08/13/19 17:03 Dose: 1,000 mg Documented by: Enoxaparin Sodium (Lovenox) 40 mg SC DAILY [facility] Last Admin: 08/13/19 09:26 Dose: 40 mg Documented by: Guaifenesin (Robitussin) 20 ml PO Q4H PRN PRN PRN Reason: COUGH Sodium Chloride () 250 mls @ 15 mls/hr IV .[id number] PRN PRN Reason: Saline Flush Last Infusion: 08/11/19 18:15 Dose: Infused Documented by: Sodium Chloride () 250 mls @ 15 mls/hr IV .[id number] PRN PRN Reason: Additional IVPB Infusion Nutritional Formula (Lactose Free) (Ensure Enlive) 120 ml PO 4X/DAY [facility] Last Admin: 08/13/19 21:28 Dose: 120 ml Documented by: Ondansetron HCl (Zofran) 4 mg IV Q8H PRN PRN PRN Reason: NAUSEA/VOMITING Promethazine HCl (Phenergan) 12.5 mg IV Q6H PRN PRN PRN Reason: NAUSEA/VOMITING Last Admin: 08/12/19 21:18 Dose: 12.5 mg Documented by: Sodium Chloride () 10 - 40 ml IV UD PRN PRN Reason: SALINE FLUSH Last Admin: 08/12/19 21:18 Dose: 10 ml Documented by: Throat Lozenges (Cepacol Sore Throat Lozenge) 1 lozenge MUCOUS MEM Q2H PRN PRN PRN Reason: SORE THROAT Zinc Sulfate (Zinc Sulfate) 220 mg PO TID KRISTIAN Stop: 08/14/19 22:01 Last Admin: 08/14/19 06:47 Dose: 220 mg Documented by: STROKE Vital Signs/Narrative: Vital Signs Temp Pulse Resp BP Pulse Ox 08/14/19 07:36 94 08/14/19 07:01 81 08/14/19 05:00 97.9 F 73 22 H 141/70 H 96 Medical Necessity - Tobacco Use Smoking Status: Former smoker Tobacco Use: Non-smoker Assessment/Plan All Active Problems SARS-associated coronavirus infection (Acute) Pneumonia (Acute) Hypoxia (Acute) 1. Acute hypoxic respiratory insufficiency secondary to COVID-19 -Appreciate ID and pulmonology assistance -continue with Plaquenil for a total of 5 days, last dose is this morning -Wean O2 and adjust positioning, still on 3L NC -Urine culture with corynebacterium 2. Elevated LFTs -Will continue to trend, etiology unclear, likely related to COVID -Asymptomatic Disposition: She wants to go home with home health, she will likely need 3 L of oxygen DVT: Lovenox Inpatient E&M: 98574 Subs Hosp L2
[2019-08-14] MEDS: Hydroxychloroquine 200 MG Tablet PO (09:11)
[2019-08-14] MEDS: Ascorbic Acid 500 MG Tablet 1000 MG PO ×2 (09:11→16:51)
[2019-08-14] MEDS: Enoxaparin 40 MG/0.4 ML Syringe SC (09:11)
--- NOTE | 2019-08-14 10:30 | CASEMGMT ---
Addendum entered by Chris Smith 08/14/19 13:50: Call received back from Elsie @ [facility]. They are able to accept pt. Call placed to pt's room and she was made aware. D/C: Home w/[facility]. CM to follow for O2 needs @ discharge. Original Note: KYLAH CASTRO NOTE: 1030: Informed by Karin BUI, that Elsie from [facility] requesting additional information in order for decision to be made on acceptance of pt. Per Elsie, pt's has been coughing at home. She inquired about what other symptoms is having and what ways they are able to quarantine in the home. Call placed to pt's . confirms he has been coughing and was running a fever. He states his symptoms started about a week ago. He denies having a sore throat but has had slight SOB, which is improving. He states his fever was as high as 102 a couple days ago but that it is improving and that he did not even take his temp yesterday or today yet. He states he had talked with his PCP's office (Dr Cresencio Mckeon) and that he was supposed to go in to get tested for COVID 3 days ago but they (PCP's office) called him and cancelled it and he does not know why. states that pt was already quarantining herself prior to coming into hospital. He states there is a separate bedroom that pt can stay in and they have 2 bathrooms--one is full-bath and the other is 1/2 bath. He states they had not been using separate bathrooms, but that they can. He is not sure if there are masks in the home, but he thinks pt may have some. He also states their son lives with them and has been quarantining himself in his bedroom in the home. states he and his son has been helping to prepare meals. He also states they do have a dog/lab in the home. Discussed importance of limiting contact with any animals as well. Discussed with if someone would be available to worm picker any new prescriptions for pt at discharge. states he will be the one picking pt up at discharge and would like any new prescriptions be sent to [facility]. He asked if he could come in to the hospital to pay for them. KYLAH CASTRO reinforced with pt that, since he is having symptoms and quarantining himself, that he would not be able to come into the hospital. He was made aware he can call in to the pharmacy and pay for the meds via phone and he can then either worm picker the meds @ [facility] curbside or the meds may be sent to [facility]. Reviewed/reinforced all other Home Isolation Recommendations with and he voices understanding. Call placed to Elsie @ [facility] @ [phone]. She was made aware of all of the above: re: husbands symptoms, son lives in home and has been quarantining himself, and other home/quarantine set up. She states they are having a meeting this morning and will review pt's chart/information and make a decision on acceptance for [facility]. 1200: Elsie from [facility] called in, requesting that when pt is discharged, that the physician makes quarantine recommendations for pt/family to follow. Elsie made aware that pt will be sent home with Handouts for Home Isolation Recommendations. Roz COOK RN, CM.
[2019-08-14] MEDS: 0.9% Saline Lock 10 ML Syringe IV (21:05)
[2019-08-14] MEDS: proMETHazine 25 MG/ML Syringe 12.5 MG IV (21:05)
[2019-08-15] VITALS (8 sets, daily range): BP systolic 110–144; BP diastolic 66–88; PULSE 68–92; RESP 16–20; TEMP 36.6–37.1; O2SAT 82–96
--- NOTE | 2019-08-15 08:21 | DCINST_ITS ---
- Discharge Diagnoses Current Active Problems: Current Active and Chronic Problems SARS-associated coronavirus infection (Acute) Pneumonia (Acute) Hypoxia (Acute) You will use the following diet at home:: Regular Your food should be the consistency of: Regular Your liquids should be the consistency of: Regular/Thin Discharge Activity: Return to Normal Activity Call your doctor if you observe: Fever of 101 or Higher, Shortness of breath, Dizziness, Fainting spells, Swelling in the ankles, Chest pain, Increased palpitations (irregular heartbeat) Additional Instructions: Since you tested positive for Coronvirus, please remain isolated for another week Allergies/Adverse Reactions: Allergies codeine Adverse Reaction (Verified 08/09/19 17:34) Other Medications to take at Discharge NK 08/09/19 Primary Care Physician: Cresencio Mckeon MD [Primary Care Provider] - Please follow up with your Primary Care Physician in: Tele-health visit in 1-2 weeks Test Results: Test results from this visit will be discussed in further detail at your follow- up appointment, if applicable.
--- NOTE | 2019-08-15 08:23 | DS.PCM_ITS ---
Discharge Date and Diagnosis - Problem List Patient Problems: Active and Suspected Problems SARS-associated coronavirus infection (Acute) Pneumonia (Acute) Hypoxia (Acute) Date of Admission: 08/09/19 Date of Discharge: 08/15/19 - Primary Discharge Diagnosis Active and Suspected Problems SARS-associated coronavirus infection (Acute) Pneumonia (Acute) Hypoxia (Acute) Hospital Course and Treatment Imaging Results: CXR: IMPRESSION: Patchy airspace opacities in the midlung fuentse bilaterally. This is likely infectious in etiology. Consults: Pulmonology ID Operations: None Procedures: None Summary of Care Provided: Per HPI: The patient is a 78 year old F with no significant past medical history who comes in with complaints of fever, cough, and shortness of breath ongoing for almost 2 weeks. Patient is a nurse at the [employer]. She was seen by her primary care doctor on 08/01/19 and got tested for COVID?19. Her results came back positive on 08/02/19. She has since been in self quarantine. She has been following up daily with her primary care doctor remotely. Today she has been progressively short of breath, her oxygen saturation drops to 85% with minimal exertion. Vitals in the ED showed temperature of 90 7.9F, heart rate 80, blood pressure 122/72, respiratory rate 19, SPO2 was 97% on 6 L of oxygen.improve gradually to 3 L of oxygen. Her admitting blood work showed WBC 5.5, Hb 13.8, Plt 254. INR 1.1, CMP is unremarkable except for Na 135, AST 95, ALT 77. Admitting CXR showed patchy airspace opacities in the midlung fuentes bilaterally. Hospital Course: 1. 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 She had gone to her doctor on August 01, 2019 to be tested for coronavirus which did come back positive. She had been in self quarantine and started feeling more short of breath and became more hypoxic. She was at 85% with minimal exertion. She has been in the hospital for approximately 6 days completing a Plaquenil course. She did have some GI upset with it but she did complete the medication and is okay for discharge. She is still requiring 3 L of nasal cannula and I discussed with her the possibility of going to a intermediate facility however she would prefer to go home. Plan will be to discharge home with home health on 3 L nasal cannula. I discussed the discharge plan with her and discussed the risks and benefits, which she expressed understanding. Also discussed with her that she should stay in quarantine for at least another 7 days when she goes home today. 2. Elevated LFTs-unsure as to the etiology, she was on Plaquenil which could potentially have led to an elevation of her LFTs. Recommend that she have outpatient follow-up and repeat testing when she is able to see her PCP in person. Patient Problems: Active and Suspected Problems SARS-associated coronavirus infection (Acute) Pneumonia (Acute) Hypoxia (Acute) - Physical Exam Vitals/I&O's: Vital Signs Temp Pulse Resp BP Pulse Ox 98.7 F 68 20 H 144/66 H 94 08/15/19 03:07 08/15/19 06:00 08/15/19 03:10 08/15/19 03:07 08/15/19 03:10 Oxygen Flow Rate (L/min) 3 Oxygen Delivery Method Nasal Cannula Weight: 144 lb 13.499 oz Body Mass Index (BMI) 29.1 Intake and Output for Last 24 Hours 08/13/19 08/14/19 08/15/19 23:59 23:59 23:59 Intake Total 720 / 720 600 / 720 140 / 140 Output Total 450 / 450 600 / 600 Balance 270 / 270 600 / 120 -460 / -460 General: Alert, Oriented x3, Cooperative, No apparent distress HEENT: Atraumatic, PERRLA, EOMI, Normocephalic Oral: Moist Mucosa Neck: Supple, No JVD Lungs: Clear to auscultation, Normal air movement, No rhonchi, No wheeze, No rales, Diminished Cardiovascular: Regular rate, Regular Rhythm, Normal S1, Normal S2, No murmurs Abdomen: Soft, Non Tender, Non-Distended, No Hepato-splenomegaly Extremities: No edema, Capillary Refill Less than 3 Seconds Skin: No rashes, No breakdown Neurological: Neuro grossly intact, Sensory exam intact to light touch and pain Psych/Mental Status: Normal Affect, Appropriate Microbiology Past 72 Hours 08/09/19 17:35 Blood Culture (Wb) - No Site/Description Given Blood Culture - Final No growth in 5 days. 08/09/19 17:30 Blood Culture (Wb) - Anticubital Left Blood Culture - Final No growth in 5 days. 08/09/19 06:47 Urine, Catheterized Urine Culture - Final Corynebacterium minutissimum Current Medications Acetaminophen (Tylenol) 650 mg PO Q6H PRN PRN PRN Reason: Pain Score 1-10/Temp > 100.7 F Last Admin: 08/13/19 21:28 Dose: 650 mg Documented by: Ascorbic Acid (Vitamin C) 1,000 mg PO BIDCM [facility] Last Admin: 08/14/19 16:51 Dose: 1,000 mg Documented by: Enoxaparin Sodium (Lovenox) 40 mg SC DAILY [facility] Last Admin: 08/14/19 09:11 Dose: 40 mg Documented by: Guaifenesin (Robitussin) 20 ml PO Q4H PRN PRN PRN Reason: COUGH Sodium Chloride () 250 mls @ 15 mls/hr IV .[id number] PRN PRN Reason: Saline Flush Last Infusion: 08/11/19 18:15 Dose: Infused Documented by: Sodium Chloride () 250 mls @ 15 mls/hr IV .[id number] PRN PRN Reason: Additional IVPB Infusion Nutritional Formula (Lactose Free) (Ensure Enlive) 120 ml PO 4X/DAY [facility] Last Admin: 08/14/19 21:06 Dose: Not Given Documented by: Ondansetron HCl (Zofran) 4 mg IV Q8H PRN PRN PRN Reason: NAUSEA/VOMITING Promethazine HCl (Phenergan) 12.5 mg IV Q6H PRN PRN PRN Reason: NAUSEA/VOMITING Last Admin: 08/14/19 21:05 Dose: 12.5 mg Documented by: Sodium Chloride () 10 - 40 ml IV UD PRN PRN Reason: SALINE FLUSH Last Admin: 08/14/19 21:05 Dose: 10 ml Documented by: Throat Lozenges (Cepacol Sore Throat Lozenge) 1 lozenge MUCOUS MEM Q2H PRN PRN PRN Reason: SORE THROAT Discharge Activity: Return to Normal Activity Call your doctor if you observe: Fever of 101 or Higher, Shortness of breath, Dizziness, Fainting spells, Swelling in the ankles, Chest pain, Increased palpitations (irregular heartbeat) Home Medications: Medications to take at Discharge NK 08/09/19 Primary Care Physician: Cresencio Mckeon MD [Primary Care Provider] - Please follow up with your Primary Care Physician in: Tele-health visit in 1-2 weeks Disposition: Home with Home Health Minutes spent on discharge:: 35 Patient Condition:: Stable Medical Necessity - Tobacco Use Smoking Status: Former smoker Tobacco Use: Non-smoker Meaningful Use Info Meaningful Use Diagnoses (Choose all that apply): None applicable Inpatient E&M: [id number] [facility]
--- NOTE | 2019-08-15 08:35 | CASEMGMT ---
CM Note: Pt to be discharged today with [facility] and will need oxygen testing prior to dc. Pt is agreeable to [facility] if home oxygen is needed. Awaiting testing results for home oxygen. Isela KIMN RN ACM
[2019-08-15] MEDS: Acetaminophen 325 MG Tablet 650 MG PO (09:19)
[2019-08-15] MEDS: Ascorbic Acid 500 MG Tablet 1000 MG PO (09:19)
--- NOTE | 2019-08-15 12:00 | CASEMGMT ---
KYLAH CM Note (late entry): Home oxygen set up through [facility]. and portable oxygen tank delivered to [facility]. Komal, [facility] updated on dc today. Hospital to Post-Acute COVID-19 Transfer Comm Tool faxed to [facility]. Isela KIMN KYLAH ACM
--- NOTE | 2019-08-15 12:39 | NURSING ---
Pt given d/c instructions and assisted with dressing and preparing for d/c. Pt refusing lunch at this time and states she just wants to get home. Pt asked this RN to call her and notify him. This RN called Bill and left message on answering machine.
== END 2019-08-15 13:45 | disposition home health service (06) | DRG 177 ==
LOC: ED 19:37 → MS2 20:14
PROVIDERS: Admitting Provider Internal Medicine; Emergency Provider Emergency Medicine; PCP Family Medicine; Visit Provider Family Medicine
DX: U07.1 COVID-19 (principal); J12.89 Other viral pneumonia; R09.02 Hypoxemia; R19.7 Diarrhea, unspecified; R53.81 Other malaise; R79.89 Other specified abnormal findings of blood chemistry; Z87.891 Personal history of nicotine dependence
CPT/HCPCS: 36415; 71045; 80048; 80053; 81001; 83605; 83735; 84100; 84484; 85025; 85610; 85730; 87040; 87077; 87086; 87088; 87506; 93005; 97162; 97166; 97530; 97535; 99285; J7030; J7050; A4216

== ENCOUNTER → 2019-10-13 16:51 | Outpatient (CLI) | payer MEDICARE, OTHER, SELFPAY ==
[2019-08-09 21:44] VITALS: BMI 29.1
--- NOTE | 2019-10-13 16:55 | RAD_ITS ---
STUDY: X-RAY - LEFT HAND REASON FOR EXAM: Female, 78 years old. Pt was admitted to hospital in August with covid, cannot remember her release date but said her left hand has been swollen and painful since she was discharged TECHNIQUE: 3 view(s) of the hand. COMPARISON: None. FINDINGS: Normal radiocarpal articulation. Normal distal radioulnar joint. Normal visualized carpal bones. Normal carpal articulations Normal carpometacarpal articulation of the thumb. Normal second through fifth carpometacarpal joints. Normal metacarpi. Normal metacarpophalangeal joint of the thumb. Normal interphalangeal joint of the thumb. Normal proximal and distal phalanges of the thumb. There is degenerative arthrosis of the metacarpophalangeal (MCP) joints. There is diffuse articular joint space narrowing of the proximal and distal interphalangeal joints of the second through fifth fingers, but without erosive changes or periarticular soft tissue swelling. Normal phalanges of the second through fifth fingers. Diffuse soft tissue swelling. RAD/Hand Min 3 Views IMPRESSION: Degenerative joint disease of the hand, as described above. Diffuse soft tissue swelling. Electronically Signed: Glenroy Schmitz, at 8:41 EDT , Service support ,
== END ==
PROVIDERS: PCP Family Medicine; Referring Provider Family Medicine; Visit Provider Family Medicine
DX: M79.642 Pain in left hand (principal)
CPT/HCPCS: 73130

== ENCOUNTER → 2019-11-27 11:08 | Outpatient (CLI) | payer MEDICARE, OTHER, SELFPAY ==
[2019-11-27 10:34] VITALS: BMI 29.2
--- NOTE | 2019-11-27 11:09 | RAD_ITS ---
STUDY: X-RAY - LEFT WRIST REASON FOR EXAM: Female, 78 years old. PAIN AND SWELLING, NO INJURY TECHNIQUE: 3 view(s) of the wrist were obtained. COMPARISON: None. FINDINGS: Normal visualized distal radius and ulna. There is degenerative arthrosis of the radiocarpal articulation. There is a slightly positive ulnar variance. Normal carpal bones. Normal carpal articulations. There is degenerative arthrosis of the carpometacarpal articulation of the thumb. Normal second through fifth carpometacarpal articulations. Normal visualized metacarpal bones. The soft tissue structures are unremarkable. 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
== END ==
PROVIDERS: PCP Family Medicine; Referring Provider Physician Assistant; Visit Provider Physician Assistant
DX: M19.032 Primary osteoarthritis, left wrist (principal)
CPT/HCPCS: 73110

== ENCOUNTER → 2020-04-21 11:48 | Outpatient (CLI) | payer MEDICARE, OTHER, SELFPAY ==
[2019-11-27 10:34] VITALS: BMI 29.2
[2020-04-21 13:18] LABS: Absolute Lymphocyte Count 2.55 X10^3/uL (0.83-4.51); Absolute Neutrophil Count 3.4 X10^3/uL (2.0-7.7); Basophil# 0.04 X10^3/uL; Basophil% 0.6 % (0-1); Eosinophil# 0.06 X10^3/uL; Eosinophils% 0.9 % (0-5); Hematocrit 44.9 % (37-47); Hemoglobin 14.3 g/dL (12.0-15.0); Lymphocyte # 2.55 X10^3/ul (4.0); Lymphocyte % 39.1 % (19-41); Mean Corp Hgb Conc 31.8 g/dL (32-36); Mean Corpuscular Hgb 30.6 pg (27.0-32.0); Mean Corpuscular Volume 95.9 fL (81-99); Mean Platelet Vol. 10.5 fl (6.2-12.0); Monocyte# 0.43 X10^3/uL; Monocyte% 6.6 % (0-10); NRBC Flagged by Analyzer 0 % (0-5); Neutrophil # 3.42 X10^3/uL (2.7-7.7); Neutrophil % 52.3 % (47-70); Platelet Count 291 K/mm3 (150-450); RBC Distribution Width CV 13.7 % (11.6-14.6); RBC Distribution Width SD 48.8 fl (35.1-43.9); Red Blood Count 4.68 M/mm3 (4.2-5.4); White Blood Count 6.5 K/mm3 (4.4-11.0)
[2020-04-21 13:41] LABS: Vitamin B12 508 pg/mL (211-911)
[2020-04-21 14:17] LABS: ALB/GLOB Ratio 0.9 RATIO (0.9-2.4); AST(SGOT) 14 U/L (15-37); Alanine Aminotransfer ALT/SGPT 24 U/L (13-56); Albumin, Serum 3.7 g/dL (3.2-5.0); Alkaline Phosphatase 59 U/L (45-117); Anion Gap 6 (5-15); BUN 18 mg/dL (7-18); BUN/Creat Ratio 20.3 RATIO (10-20); Calcium,Total 9.1 mg/dL (8.5-10.1); Chloride 108 mmol/L (98-107); Creatinine, Serum 0.89 mg/dL (0.55-1.02); EST Glomerular Filtration Rate 65 mL/min (>60); Est Glom Filt Rate - Afr Amer 79 mL/min (>60); Globulin 3.9 g/dL (2.2-4.2); Glucose 101 mg/dL (74-106); Potassium 4.2 mmol/L (3.5-5.1); Protein, Total 7.6 g/dL (6.4-8.2); Sodium Level 141 mmol/L (136-145); Thyroid Stim Hormone (TSH) 1.35 uIU/mL (0.358-3.74)
== END ==
PROVIDERS: PCP Family Medicine; Referring Provider Family Medicine; Visit Provider Family Medicine
DX: L65.9 Nonscarring hair loss, unspecified (principal); R06.09 Other forms of dyspnea; R53.83 Other fatigue
CPT/HCPCS: 36415; 80053; 82607; 82746; 84443; 85025

== ENCOUNTER → 2020-04-23 10:36 | Outpatient (CLI) | payer MEDICARE, OTHER, SELFPAY ==
[2019-11-27 10:34] VITALS: BMI 29.2
--- NOTE | 2020-04-23 10:40 | STE_ITS ---
Reason For Study: KINNEY Stress Results Protocol: Sean Protocol WITH DEFINITY Maximum Predicted HR: 141 bpm Target HR: 120 bpm % Maximum Predicted HR: 86 % DurationHeart Rate Stage (mm:ss) (bpm) BP Comment BASELINE 73 142/803CC DEFINITY STAGE 1 3:00 121 170/722 CC DEFINITY RECOVERY 84 140/78 Stress Duration: 3:00 mm:ss Maximum Stress HR: 121 bpm Baseline Echocardiogram Findings The estimated ejection fraction is 65 %. EF at peak exercise is 75%. Stress Echo Wall motion Data Resting WM Intermediate WM Stress WM Resting Wall Motion Wall Motion Stress No regional wall motion No regional wall motion abnormalities noted. abnormalities noted. EKG Data The baseline ECG demonstrates normal sinus rhythm with at rate of _ beats per minute. No ischemic changes. Symptoms with Stress The patient experinced No chest pain . Interpretation Summary The estimated ejection fraction is 65 %. Stress echo is negative for exercise induced CP or EKG or Echocardiographic changes of ischemia Ordering Physician: Cresencio Mckeon Referring Physician: Cresencio Mckeon Performed By: Angel Luis Murphy RCS
== END ==
PROVIDERS: PCP Family Medicine; Referring Provider Family Medicine; Visit Provider Family Medicine
DX: R06.00 Dyspnea, unspecified (principal)
CPT/HCPCS: 93017; 93350; Q9957; A4216; C8928

== ENCOUNTER → 2022-01-19 | Outpatient (CLI) | payer MEDICARE, SELFPAY ==
--- NOTE | 2022-01-19 12:50 | RAD_ITS ---
STUDY: XR Shoulder Min 2 Views REASON FOR EXAM: Female, 81 years old. PAIN TECHNIQUE: XR Shoulder Min 2 Views LEFT COMPARISON: None. FINDINGS: Normal glenohumeral articulation. Normal acromioclavicular joint. Normal acromion. Normal humeral head and visualized proximal humerus. The soft tissue structures are unremarkable. Normal visualized pulmonary apex. RAD/Shoulder min 2 Views IMPRESSION: There are no acute findings of the shoulder. Electronically Signed: Dennis Montoya MD at 17:47 EDT ,
== END | disposition home or self-care (01) ==
LOC: MTRAD 12:49
PROVIDERS: PCP Family Medicine; Referring Provider Family Medicine; Visit Provider Family Medicine
DX: M25.512 Pain in left shoulder (principal)
CPT/HCPCS: 73030

== ENCOUNTER → 2022-02-20 | Outpatient (CLI) | payer MEDICARE, SELFPAY ==
[2022-02-20 18:35] LABS: AST(SGOT) 27 U/L (15-37); Alanine Aminotransfer ALT/SGPT 33 U/L (13-56); Albumin, Serum 3.7 g/dL (3.2-5.0); Alkaline Phosphatase 69 U/L (45-117); Anion Gap 8 (5-15); BUN 17 mg/dL (7-18); Calcium,Total 9.1 mg/dL (8.5-10.1); Chloride 107 mmol/L (98-107); Creatinine, Serum 0.85 mg/dL (0.55-1.02); EST Glomerular Filtration Rate 68 mL/min (>60); Est Glom Filt Rate - Afr Amer 83 mL/min (>60); Globulin 3.8 g/dL (2.2-4.2); Glucose 91 mg/dL (74-106); Potassium 4.1 mmol/L (3.5-5.1); Protein, Total 7.5 g/dL (6.4-8.2); Sodium Level 142 mmol/L (136-145)
== END | disposition home or self-care (01) ==
PROVIDERS: PCP Family Medicine; Referring Provider Family Medicine; Visit Provider Family Medicine
DX: E55.9 Vitamin D deficiency, unspecified (principal)
CPT/HCPCS: 36415; 80053; 82306

== ENCOUNTER → 2023-06-01 | Outpatient (CLI) | payer MEDICARE, SELFPAY ==
--- OUTSIDE RECORDS SUMMARY | 2023-06-01 15:17 | XMS RPT_ITS | CCD ---
Author Name Unknown Address [address] [place] [address] Organization [facility] Care Team Providers Care Inventory Associate Name Role Phone NEO MALHOTRA (MINERVA) Unavailable Unavailable Results Test Name Value Interpretation Reference Range Facil ity Encounters Encounter Date Encounter Type Care Provider Facility Start: 12-18-2016 End: 02-26-2017 Ambulatory NEO ([facility]) [facility] Summary Purpose Family History No Family History Records Found Advance Directives No Advanced Directives Records Found Additional Source Comments INFORMATION SOURCE (unrecogn ized section and content) FOR RECORDS PERTAINING TO PATIENTS WHO ARE OR HAVE BEEN ENROLLED IN A CHEMICAL DEPENDENCY/SUBSTANCEABUSE PROGRAM, SOME INFORMATION MAY BE OMITTED. This clinical summary was aggregated from multiple sources. Caution should be exercised in using it in the provision of clinical care. This summary normalizes information from multiple sources, and as a consequence, information in this document may materially change the coding, format and clinical context of patient data. In addition, data may be omitted in some cases. CLINICAL DECISIONS SHOULD BE BASED ON THE PRIMARY CLINICAL RECORDS. [facility] [email or web address] [facility]. provides no warranty or guarantee of the accuracy or completeness of information in this document.
[2023-06-01 18:07] LABS: Vitamin D,25 Hydroxy 47.2 ng/mL
[2023-06-01 18:31] LABS: AST(SGOT) 27 U/L (15-37); Alanine Aminotransfer ALT/SGPT 30 U/L (13-56); Albumin, Serum 3.9 g/dL (3.2-5.0); Alkaline Phosphatase 64 U/L (45-117); Anion Gap 7 (5-15); BUN 14 mg/dL (7-18); BUN/Creat Ratio 16.8 RATIO (10-20); Calcium,Total 9.4 mg/dL (8.5-10.1); Chloride 107 mmol/L (98-107); Cholesterol 280 mg/dL (200); Creatinine, Serum 0.83 mg/dL (0.55-1.02); EST Glomerular Filtration Rate 70 mL/min (>60); Est Glom Filt Rate - Afr Amer 84 mL/min (>60); Glucose 95 mg/dL (74-106); High Density Lipoprotein 47 mg/dL; Potassium 4.2 mmol/L (3.5-5.1); Protein, Total 7.9 g/dL (6.4-8.2); Sodium Level 140 mmol/L (136-145); Triglycerides 175 mg/dL; Very Low Density Lipoprotein 35 mg/dL (5-40)
== END | disposition home or self-care (01) ==
LOC: MFPLAB 14:57
PROVIDERS: PCP Family Medicine; Visit Provider Family Medicine
DX: Z00.00 Encounter for general adult medical examination without abnormal findings (principal); E55.9 Vitamin D deficiency, unspecified; Z13.6 Encounter for screening for cardiovascular disorders
CPT/HCPCS: 36415; 80053; 80061; 82306

== ENCOUNTER → 2024-06-02 | Outpatient (CLI) | payer MEDICARE, SELFPAY ==
[2024-06-02 15:53] LABS: ALB/GLOB Ratio 0.9 RATIO (0.9-2.4); AST(SGOT) 15 U/L (15-37); Alanine Aminotransfer ALT/SGPT 25 U/L (13-56); Albumin, Serum 3.8 g/dL (3.2-5.0); Alkaline Phosphatase 54 U/L (45-117); Anion Gap 7 (5-15); BUN 16 mg/dL (7-18); BUN/Creat Ratio 17.4 RATIO (10-20); Calcium,Total 9.7 mg/dL (8.5-10.1); Chloride 106 mmol/L (98-107); Cholesterol 253 mg/dL (200); Creatinine, Serum 0.92 mg/dL (0.55-1.02); EST Glomerular Filtration Rate 62 mL/min (>60); Est Glom Filt Rate - Afr Amer 75 mL/min (>60); Globulin 4.2 g/dL (2.2-4.2); Glucose 103 mg/dL (74-106); High Density Lipoprotein 48 mg/dL; Potassium 4.2 mmol/L (3.5-5.1); Sodium Level 140 mmol/L (136-145); Triglycerides 228 mg/dL; Very Low Density Lipoprotein 46 mg/dL (5-40)
== END | disposition home or self-care (01) ==
LOC: MFPLAB 10:45
PROVIDERS: PCP Family Medicine; Referring Provider Family Medicine; Visit Provider Family Medicine
DX: E78.00 Pure hypercholesterolemia, unspecified (principal)
CPT/HCPCS: 36415; 80053; 80061

== ENCOUNTER → 2024-11-17 | Outpatient (CLI) | payer MEDICARE, SELFPAY ==
[2024-11-17 12:57] LABS: AST(SGOT) 19 U/L (<=31); Alanine Aminotransfer ALT/SGPT 17 U/L (<=34); Albumin, Serum 4.3 g/dL (3.4-4.8); Alkaline Phosphatase 53 U/L (35-104); Anion Gap 11 (5-15); BUN 16 mg/dL (4-19); BUN/Creat Ratio 18.5 RATIO (10-20); Calcium,Total 9.7 mg/dL (7.6-11.0); Carbon Dioxide 26.1 mmol/L (21.0-32.0); Chloride 104 mmol/L (98-108); Cholesterol 270 mg/dL (<=200); Globulin 3.1 g/dL (2.2-4.2); Glucose 115 mg/dL (70-99); Low Density Lipoprotein Calc. 183 mg/dL; Potassium 4.6 mmol/L (3.3-5.1); Triglycerides 213 mg/dL; Very Low Density Lipoprotein 43 mg/dL (5-40); cholesterol:hdl ratio screen 6.03
== END | disposition home or self-care (01) ==
LOC: MFPLAB 09:45
PROVIDERS: PCP Family Medicine; Referring Provider Family Medicine; Visit Provider Family Medicine
DX: E78.00 Pure hypercholesterolemia, unspecified (principal)
CPT/HCPCS: 36415; 80053; 80061